=== PATIENT | female | born 1995 | race Caucasian/White ===

== ENCOUNTER 2016-04-13 18:18 | Inpatient (IN) | payer OTHER ==
[~2016-04-13] VITALS: Ht 177.8 cm; Wt 70.3 kg
[~2016-04-13 18:18] MED LIST: QUETIAPINE FUM200 M1 PO; TRAZODONE HCL50 M1 PO
--- NOTE | 2016-04-13 18:26 | NUR ---
PT STATES THAT SHE HAS HISTORY OF BIPOLAR , ANXIETY/DEPRESSION , STATES THAT SHE HAS NOT HAD HER MEDS IN 2 WEEKS, LITHIUM/RIPERDONE/COGENTIN, COMPLAINS OF HEARING VOICES THAT ARE TELLING HER SHE IS A LOSER AND THAT SHE SHOULD KILL HERSELF, NO SPECIFIC PLAN, PT CALM COPERATIVE, MOTHER WITH HER, DENIES DRUGS/ETOH
[2016-04-13] MEDS ORDERED: LITHIUM CARBON300 M4 PO (18:38)
[2016-04-13] MEDS ORDERED: LITHIUM CARBON150 M1 PO (18:38)
[2016-04-13] MEDS ORDERED: RISPERIDONE2 M1 PO (18:39)
[2016-04-13] MEDS ORDERED: BENZTROPINE MESY1 M1 PO (18:39)
--- NOTE | 2016-04-13 18:40 | NUR ---
SECURITY AT BEDSIDE FOR WANDING. PT CHANGED INTO BLUE SCRUBS
--- NOTE | 2016-04-13 18:44 | ED PSYCHIATRIC COMPLAINT ---
History of Present Illness General Chief Complaint: Psychiatric Related Complaint Stated Complaint: MOM STATES "SHE NEED PSY EVAL AND IS OFF HER MEDS" Source: patient, family Exam Limitations: clinical condition, physical impairment Vital Signs & Intake/Output Vital Signs & Intake/Output Vital Signs Date Time Temp Pulse Resp B/P Pulse O2 O2 Flow FiO2 Ox Delivery Rate 04/14 1403 98.2 86 18 102/52 98 Room Air 04/14 1051 98.4 82 18 135/56 98 Room Air 04/14 0748 98.2 72 18 107/51 96 Room Air 04/13 2226 98.2 78 16 116/74 98 Room Air 04/13 1823 97.6 100 16 128/90 98 Room Air ED Intake and Output 04/14 0000 04/13 1200 Intake Total 250 Output Total Balance 250 Intake, Oral 250 Patient 155 lb Weight Allergies Coded Allergies: No Known Allergies (11/22/15) Reconcile Medications Benztropine Mesylate 1 MG TABLET 1 TAB PO BID MENTAL HEALTH (Reported) Raywick Carbonate 150 MG CAPSULE 1 CAP PO QPM MENTAL HEALTH (Reported) Raywick Carbonate 300 MG CAPSULE 600 MG PO QAM MENTAL HEALTH (Reported) Risperidone 2 MG TABLET 1 TAB PO BID MENTAL HEALTH (Reported) Triage Note: PT STATES THAT SHE HAS HISTORY OF BIPOLAR , ANXIETY/DEPRESSION , STATES THAT SHE HAS NOT HAD HER MEDS IN 2 WEEKS, LITHIUM/RIPERDONE/COGENTIN, COMPLAINS OF HEARING VOICES THAT ARE TELLING HER SHE IS A LOSER AND THAT SHE SHOULD KILL HERSELF, NO SPECIFIC PLAN, PT CALM COPERATIVE, MOTHER WITH HER, DENIES DRUGS/ETOH Triage Nurses Notes Reviewed? yes : No Patient currently breastfeeds: No HPI: 04/13/16 7 PM 21-year-old female presents to the emergency department for depression and episodes of agitation. According to the mother the child had stopped taking her medications and she's been using drugs and acting appropriately. Today in the shower she was talking to herself the mother actually taped her and she seems to be having multiple personalities. The onset of the symptoms were abrupt, the duration is really unknown, the severity significant as her symptoms required her to come to the emergency department for care (MEI MARCELINO DO) Past History Travel History Traveled to [place] past 21 day No Medical History Any Pertinent Medical History? see below for history Neurological: NONE EENT: NONE Cardiovascular: NONE Respiratory: NONE Gastrointestinal: NONE Hepatic: NONE Renal: NONE Musculoskeletal: NONE Psychiatric: anxiety, bipolar disease, depression, schizophrenia Endocrine: NONE Blood Disorders: NONE Cancer(s): NONE HYDRATE CONTROL TENDER/Reproductive: NONE Surgical History Surgical History: non-contributory Psychosocial History Who do you live with Mother What is your primary language [place] Tobacco Use: Current Daily Use Daily Tobacco Use Amount/Type: => 5 Cigarettes daily ETOH Use: denies use Illicit Drug Use: denies illicit drug use Family History Hx Contributory? No (MEI MARCELINO DO) Review of Systems Review of Systems Constitutional: Denies: fever. Respiratory: Denies: short of breath. Cardiovascular: Denies: chest pain. GI: Reports: no symptoms. Genitourinary: Reports: no symptoms. Musculoskeletal: Reports: no symptoms. Skin: Reports: no symptoms. Neurological/Psychological: Reports: depressed. Hematologic/Endocrine: Reports: no symptoms. (MEI MARCELINO DO) Physical Exam Physical Exam General Appearance: well developed/nourished, awake, anxious, moderate distress Head: atraumatic, normal appearance Eyes: Bilateral: normal appearance, PERRL, EOMI. Ears, Nose, Throat: normal pharynx, normal ENT inspection, hearing grossly normal Neck: normal inspection, supple, full range of motion Respiratory: normal breath sounds, chest non-tender, no respiratory distress Cardiovascular: regular rate/rhythm Gastrointestinal: soft, non-tender Extremities: normal range of motion Neurological/Psychiatric: no motor/sensory deficits, awake, agitated, alert, normal mood/affect, anxious Appearance/Memory/Insight: disheveled Behavoir/Eye Contact/Speech: cooperative Thoughts/Hallucinations: normal thought pattern, delusions Skin: intact, normal color, warm/dry SAD PERSONS SAD PERSONS Response Value Depression/Hopelessness? yes 2 Previous Attempts/Psych Care yes 1 Excessive Ethanol/Drug Use? yes 1 Total 4 SAD PERSONS Done? yes (MEI MARCELINO DO) Progress Differential Diagnosis: drug intoxication, drug overdose, drug withdrawal Plan of Care: Orders Procedure Date/time Status Regular Diet 04/14 B Active Patient Safety Monitor 04/14 1500 Complete Continuous Observation Monitor 04/14 1500 Active Patient Safety Monitor 04/14 1100 Complete Continuous Observation Monitor 04/14 1100 Active Patient Safety Monitor 04/14 0700 Complete Continuous Observation Monitor 04/14 0700 Active Continuous Observation Monitor 01/02 1904 Active ED CRISIS PSYCH CONSULT 04/13 1903 Active URINE 04/13 1856 Complete URINE DRUG SCREEN FOR ER ONLY 04/13 1856 Complete LITHIUM 04/13 1856 Complete ETHANOL 04/13 1856 Complete COMPREHENSIVE METABOLIC PANEL 04/13 1856 Complete CBC WITHOUT DIFFERENTIAL 04/13 1856 Complete Laboratory Tests 04/13/161926: Urine Opiates Screen < 100.00, Methadone Screen < 40, Barbiturate Screen < 60, Ur Phencyclidine Scrn < 6.00, Amphetamines Screen < 100, U Benzodiazepines Scrn > 800 H, Urine Cocaine Screen < 50, Urine Cannabis Screen 30.50, Urine Test NEGATIVE 04/13/161924: Anion Gap 11, Estimated GFR > 60, BUN/Creatinine Ratio 11.4, Glucose 106 H, Calcium 10.0, Total Bilirubin 0.8, AST 15, ALT 12, Alkaline Phosphatase 54, Total Protein 7.6, Albumin 4.7, Globulin 2.9, Albumin/Globulin Ratio 1.6, CBC w Diff NO MAN DIFF REQ, RBC 5.05, MCV 88.5, MCH 30.0, RDW 12.8, MPV 9.0, Gran % 71.3, Lymphocytes % 20.0 L, Monocytes % 7.4, Eosinophils % 0.8, Basophils % 0.5 , Absolute Granulocytes 5.7, Absolute Lymphocytes 1.6, Absolute Monocytes 0.6, Absolute Eosinophils 0.1, Absolute Basophils 0, PUBS MCHC 33.9, Raywick < 0.2 L , Serum Alcohol < 10.0 Hand-Off Endorsed To: PEDRO ALICEA MD Endorsed Time: 0700 Pending: consult (MUKESH MITCHELL,CASSIE Salas) Comments: To be admitted to [facility] (PEDRO ALICEA MD) Departure Departure Disposition: STILL A PATIENT Condition: Stable Clinical Impression Primary Impression: Depression Secondary Impressions: Agitation Referrals: PATIENT HAS NO PRIMARY CARE DR (PCP/Family) Referred to [facility] as new patient No Departure Forms: Customer Survey General Discharge Information Comments 04/13/16 7:10 PM Signed out to Dr. Toney at 7 PM (MEI MARCELINO DO) Psych Admission Note Psychiatric Admission: I have seen and evaluated KERWIN GARZA. I have also reviewed all the pertinent lab results and diagnostic results. KERWIN GARZA will be admitted to our inpatient Psychiatric unit for treatment and care. (DEANNE MITCHELL,PEDRO) Critical Care Note Critical Care Note Critical Care Time: 30-74 min (MEI MARCELINO DO)
--- NOTE | 2016-04-13 18:45 | NUR ---
PT ALERT AND ORIENTED UPON INTERVIEW. PT REPORTS SHE "HAD A MENTAL BREAKDOWN IN THE SHOWER". PT'S MOTHER DROVE HER TO HOSPITAL. PT REPORTS STOPPING HER MEDS BECAUSE SHE DIDN'T THINK THAT THEY WERE WORKING. PT REPORTS SHE WAS ON [facility] IN NOVEMBER 2015 AND ONE PRIOR INPATIENT STAY AT [place]. PT DENIES HX OF SUICIDE ATTEMPTS. PT DENIES SELF HARM BEHAVIORS. PT REPORTS SLEEP AND APPETITE HAVE BEEN NORMAL, WITH DIMINISHED CONCENTRATION. PT REPROTS SHE HAS A PSYCHIATRIST (DR Norton) AND THERAPIST (MORELIA) THROUGH [facility]. PT DENIES HI. PT REPORTS COMMAND AH TELLING HER TO KILL HERSELF.
--- NOTE | 2016-04-13 19:25 | ED PSY CRISIS COLLATERAL NOTE ---
Collateral Note Collateral Note Family/Inform/Aidee Contacts: SW spoke with the patients mother, Alma Judge ([phone]), to obtain collateral information. Alma reports, that she believes that patient was discharged too soon from [facility] and that the patient has had trouble with services, since being discharged. Alma notes that the patient was set up with "[facility]," until she was discharged from [facility] to [facility]. She states that there was a lapse in time between the discharge and intake appointments. Alma states that in addition to the patient having difficulty with her treaters, there have been ongoing issues with the visiting RN to give the patient her medications. Per Alma the patient has been off her medications for a couple of weeks and that she has become more paranoid. Alma has a video of the patient reportedly in the dark, in the shower, fighting with someone, noting there was no one there. This job specification writer did observe a black screen and the patient can be heard yelling at someone, of note there were no other voices noted. Per Alma the patient made statements about not wanting to be here anymore and "that life would be better off without her." Alma believes that the patient is in need of another hospitalization at this point.
--- NOTE | 2016-04-13 19:39 | NUR ---
URINE TRIO SENT TO LAB
--- NOTE | 2016-04-13 19:40 | NUR ---
LABS SENT (SST,LAV)
[2016-04-13 19:42] LABS: ABSOLUTE BASOPHIL COUNT 0 /CUMM (0.0-0.2); ABSOLUTE EOSINOPHIL COUNT 0.1 /CUMM (0.0-0.7); ABSOLUTE GRANULOCYTE CT 5.7 /CUMM (1.4-6.5); ABSOLUTE LYMPH COUNT 1.6 /CUMM (1.2-3.4); ABSOLUTE MONOCYTE COUNT 0.6 /CUMM (0.10-0.60); BASOPHIL % 0.5 % (0.0-2.0); EOSINOPHIL % 0.8 % (0-5); GRANULOCYTE % 71.3 % (42.2-75.2); HEMATOCRIT 44.7 % (37-47); MEAN CORPUSCULAR HGB CONC 33.9 G/DL (33.0-37.0); MEAN CORPUSCULAR VOLUME 88.5 FL (81.0-99.0); PLATELET COUNT 222 /CUMM (130-400); RBC DISTRIBUTION WIDTH 12.8 % (11.5-14.5); RED BLOOD CELL CT 5.05 /CUMM (4.20-5.40); WHITE BLOOD CELL COUNT 7.9 /CUMM (4.8-10.8)
[2016-04-13 20:03] LABS: LITHIUM < 0.2 mmol/L (0.6-1.2)
--- NOTE | 2016-04-13 21:01 | ED PSYCH CRISIS CONSULTATION ---
Crisis Consult Basic Assessment Date of Consult: 04/13/16 Responsible Person/Accompanied By: Mother- Alma Judge Insurance Authorization: Insurance #1: Insurance name: SELF-PAY Phone number: Policy number: Group number: Authorization number: ED Provider: Patient's ED Provider: MEI MARCELINO DO Primary Care Physician: Patient's PCP: PATIENT HAS NO PRIMARY CARE DR PCP's Phone Number: Current Psychiatrist: [facility] Chief Complaint: Psychiatric Related Complaint Patient's Quote: " I had a mental breakdown." Present Illness: The patient is a 21 year old, single, , female presenting to the ED with her mother, for + command auditory hallucinations, telling her to kill herself. The patient was admitted to [facility] in November 2015 for a similar presentation. After discharge, the patient has been managed by the [facility] program and [facility], however has been somewhat non-compliant. The patient confirms that she has been off her medications for a little while and of note her Applewood level in not therapeutic at this time. She states she has anywhere from 10 to 20 voices and that they were quieter when she was taking her medications. She does endorse a history of VH and states she saw a "green blob" a couple of weeks ago.The patient is currently unemployed, lives with her mother and is supported by her mother. She reports that "her breakdown was short and she didn't do anything." She denies feeling suicidal or homicidal at this time. She reports that she is paranoid about their home and that is why they are in the process of moving. She states that she has a hard time differentiating between her voices and her cats. She denies any current stressors and notes that "these questions," are what's stressful for her, as they are making her anxious. She states that she is not currently in a relationship and recently had a breakup. In addition to her previous [facility] admission and the above OP treaters, she has also been admitted to [facility]. She denies any current drug or alcohol abuse, however states she used to use Marijuana. Her tox screen was positive for Benzodiazepines and she states it may be something she is prescribed. She does not want to be admitted at this time. Collateral obtained from her mother, Alma Judge, please see seperate collateral note. Patient's Address: [address] [place], [place] [id number] Other Phone Number: Who Do You Live With? Mother Family/Informants Interviewed: Mother- Alma Judge- [phone]- Please see seperate collateral note. Allergies - Coded Allergies: No Known Allergies (11/22/15) Current Medications - Scheduled Medications Benztropine Mesylate 1 MG TABLET 1 TAB PO BID MENTAL HEALTH #60 (Reported) Entered as Reported by MIRANDA ANTOINE on 04/13/161838 Last Taken: At an unknown date and time Applewood Carbonate 150 MG CAPSULE 1 CAP PO QPM MENTAL HEALTH #30 (Reported) Entered as Reported by MIRANDA ANTOINE on 04/13/161837 Applewood Carbonate 300 MG CAPSULE 600 MG PO QAM MENTAL HEALTH #120 (Reported) Entered as Reported by MIRANDA ANTOINE on 04/13/161837 Risperidone 2 MG TABLET 1 TAB PO BID MENTAL HEALTH #60 (Reported) Entered as Reported by MIRANDA ANTOINE on 04/13/161838 Laboratory Results: Laboratory Tests 04/13/161926: Urine Opiates Screen < 100.00, Methadone Screen < 40, Barbiturate Screen < 60, Ur Phencyclidine Scrn < 6.00, Amphetamines Screen < 100, U Benzodiazepines Scrn > 800 H, Urine Cocaine Screen < 50, Urine Cannabis Screen 30.50, Urine Test NEGATIVE 04/13/161924: Anion Gap 11, Estimated GFR > 60, BUN/Creatinine Ratio 11.4, Glucose 106 H, Calcium 10.0, Total Bilirubin 0.8, AST 15, ALT 12, Alkaline Phosphatase 54, Total Protein 7.6, Albumin 4.7, Globulin 2.9, Albumin/Globulin Ratio 1.6, CBC w Diff NO MAN DIFF REQ, RBC 5.05, MCV 88.5, MCH 30.0, RDW 12.8, MPV 9.0, Gran % 71.3, Lymphocytes % 20.0 L, Monocytes % 7.4, Eosinophils % 0.8, Basophils % 0.5 , Absolute Granulocytes 5.7, Absolute Lymphocytes 1.6, Absolute Monocytes 0.6, Absolute Eosinophils 0.1, Absolute Basophils 0, PUBS MCHC 33.9, Applewood < 0.2 L , Serum Alcohol < 10.0 (CARLA SECURITY OFFICER,RAJESH) Past History Past Medical History Neurological: NONE EENT: NONE Cardiovascular: NONE Respiratory: NONE Gastrointestinal: NONE Hepatic: NONE Renal: NONE Musculoskeletal: NONE Psychiatric: anxiety, bipolar disease, depression, schizophrenia Endocrine: NONE Blood Disorders: NONE Cancer(s): NONE INSURANCE RISK ANALYST/Reproductive: NONE Past Surgical History Surgical History: non-contributory Psychosocial History Strengths/Capabilities: The patient appears to have a supportive mother. Physical Limitations (Interventions): None noted Psychiatric Treatment History Psych Treatment Psychiatric Treatment Yes Inpatient Treatment Yes Outpatient Treatment Yes Location of Treatment IP- [facility], [facility] Reason for Treatment symptoms of psychosis Dates of Treatment [facility]- November 2015, [facility]- October 2015, OP current Response to Treatment The patient has missed some appointments and has not been compliant with her medications because of missed appointments. Per her mother she has also had issues with the visiting RN. Diagnosis by History: Unspecified Schizophrenia Spectrum Disorder Substance Use/Abuse History Drug Use/Abuse Substances Used/Abused No First Use N/A Last Used N/A How much used/taken N/A How often N/A For how long N/A Route of use N/A Substance Abuse Treatment Substance Abuse Treatment Past Substance Abuse TX No Inpatient Treatment No Outpatient Treatment No (N/A) Location of Treatment N/A Reason for Treatment N/A Dates of Treatment N/A Response to Treatment N/A Comments: The patient denies any curernt drug or alcohol abuse. She does report a history of trying alcohol in the past and using Marijuana. (RAJESH AGUIRRE LCSW) Current Mental Status Mental Status Orientation: Person, Place, Situation Affect: WNL Speech: WNL Neuro-vegetative: Concentration Poor Appearance Appearance- Dress/Hygiene: The patient was sitting in bed, her hair was disheveled and in a bun on the top of her head. She did have good eye contact and participation in the evaluation. Behaviors Thought Process: WNL Thought Content: Auditory Hallucinations, Visual Hallucinations, The patient reports that she is having auditory hallucinations that are command in nature. She states that they were better when she was on her medications. She states that they began to tell her to kill herself today. Her mother has an auditory video that had her screaming at her voices. Memory: WNL Insight: Fair SI/HI Risk Assessment Past Suicidal Ideation/Attempts No Current Suicidal Ideation/Att No Past Homicidal Ideation/Att: No Current Homicidal Ideation/Attempts No Degree of Intent: The patient denies any current or history of SI / HI. Per her mother she did make a comment about life being better off without her. Danger To: N/A Gravely Disabled: Command Auditory Hallucinations. Risk Factors: age (under 24/over 65), SA/MH hospitalized, isolate/no social support, poor impulse control Lethality Ratin PTSD Checklist PTSD Done? patient declined (Pt. denies trauma or abuse hx.) ED Management Sitter: Yes Restraints: No (RAJESH AGUIRRE LCSW) DSM5/PS Stressors/Medical Prob Diagnosis' (DSM 5, Stressors, Medical): F29 Unspecified Schizophrenia Spectrum and other Psychotic Disorder. Current GAF: 28 Comments: N/A (RAJESH AGUIRRE LCSW) Departure Disposition Psych Medical Clearance Date: 04/13/16 Medically Cleared at: 2009 Time Started: 2009 Time Ended: 2049 Psychiatrist Consulted: Ryan Womack MD Date Disposition Established: 04/13/16 Time Disposition Established: 2049 Plan for Disposition - Modality: Inpatient Psychiatry Facility: [facility] Contact: N/A Telephone: N/A Rationale for Disposition: The patient is a 21 year old female presenting to the ED with an increase in command auditory hallucinations, telling her to kill herself. The patient has been treatment and medication non-compliant. Case discussed with Dr. Womack and he finds the patient to be in need of an inpatient hospitalization at this time. Per Dr. Womack she should be held over for admission to [facility] tomorrow vs. bed search. Additional Instructions: N/A Referrals PATIENT HAS NO PRIMARY CARE DR (PCP/Family) (RAJESH AGUIRRE LCSW)
--- NOTE | 2016-04-13 21:06 | NUR ---
PT SITTING ON BED, ALERT AND ORIENTED. PT WATCHING TV. SITTER AT DOOR FOR SAFETY. PT CALM AND COOPERATIVE
--- NOTE | 2016-04-13 22:09 | NUR ---
PT MEDICATED WITH ATIVAN 2MG PO PT CALM AND COOPERATIVE, WATCHING TV, LYING IN BED.
--- NOTE | 2016-04-13 22:26 | NUR ---
PT SITTING ON BED WATCHING TV. PT PLEASANT, CALM AND COOPERATIVE. SITTER AT DOOR FOR SAFETY.
--- NOTE | 2016-04-14 00:46 | NUR ---
PT SLEEPING WITH RR, CHEST AND RISE FALL NOTED, PT SLEEPING WITH BLANKET ON HEAD TO BLOCK LIGHT. SITTER IN PLACE AT DOOR, WILL CONTINUE TO MONITOR.
--- NOTE | 2016-04-14 02:11 | NUR ---
PT SLEEPING WITH RR, CHEST RISE AND FALL NOTED, SLEEPING ON SIDE. SITTER IN PLACE AT DOOR, WILL CONTINUE TO MONITOR.
--- NOTE | 2016-04-14 03:57 | NUR ---
PT SLEEPING WITH RR, CHEST RISE AND FALL NOTED. SITTER IN PLACE AT DOOR, WILL CONTINUE TO MONITOR
--- NOTE | 2016-04-14 06:37 | NUR ---
assumed care at this time, pt wakes to verbal stimuli and offers no complaints at this time. will continue to monitor
--- NOTE | 2016-04-14 09:08 | NUR ---
PT REMAINS CALM AND COPERATIVE, SLEEPING WITH REGULAR RESP RATE NOTED, SITTERS REMAIN
--- NOTE | 2016-04-14 10:31 | NUR ---
PT NOTED TO BE SLEEPING AT THIS TIME, REGULAR RESP RATE NOTED . SITTERS REMAINS
--- NOTE | 2016-04-14 12:01 | NUR ---
PT ASLEEP WHEN THIS NURSE ENTERED ROOM, AWAKES TO VERBAL STIMULI, CALM AND COPERATIVE, PROVIDED WITH FOOD TRAY
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
--- NOTE | 2016-04-14 15:18 | NUR ---
ASSUMING CARE OF PT
--- NOTE | 2016-04-14 16:02 | NUR ---
[facility] CALLED FOR MEDS
--- NOTE | 2016-04-14 17:14 | NUR ---
REPORT GIVEN TO PAINTING MANAGER, OK TO SEND PT DOWN
--- NOTE | 2016-04-14 18:36 | NUR ---
ADMITTED FROM ED ON VOLUNTARY FOR USPECIFIED SCHIZOPHRENIA S/P REPORTED BREAKDOWN AT HOME. DISCHARGED FROM [facility] IN NOVEMBER AND STOPPED TAKING MEDS ABOUT TWO WEEKS AGO. rEPORTS DIESEL MECH[employer]IC [employer] [facility] TELLING HER TO HKILL HERSELF. DENIES CURRENT THOUGHTS OF SELF HARM. MOOD IS ELEVATED WITH GIDDY AFFECT. NO MEDICAL ISSUES REPORTED.
[2016-04-14 20:01] VITALS: BP 106/60
[2016-04-15 08:08] VITALS: BP 84/52
[2016-04-15 11:06] VITALS: BP 84/52
[2016-04-15 11:24] VITALS: BP 112/72
--- NOTE | 2016-04-15 11:57 | NUR ---
ABNORMAL EKG SEEN BY . NO NEW ORDERS AT THIS TIME
--- NOTE | 2016-04-15 12:09 | CPS MD/APRN INITIAL ASSE PSYCH ---
See Addendum Psychiatric Admission User Support Specialist's Note Reviewed: Yes Patient Seen and Examined: Yes Identifying Information: Patient is a 21-year old single female. Chief Complaint: "I had a nervous breakdown in my shower and screamed that I was an asshole." Reaction to Hospitalization: "When will I go home?" History of Present Illness Onset of Illness: Patient is a 21-year old, single, female with a history of psychosis, who was brought to ED by her mother for command auditory hallucinations telling her to kill herself. Patient was previously hospitalized on [facility] in November of 2015, for a similar presentation. Patient had been dioscharged from [facility] with follow-up to [facility] and [facility]. Patient reported non-adherence to prescribed medications during treatment there, and reported being off prescribed medications over the last "few weeks." She presently denies SI, HI, VH, CAH. She reported +AH asking why this card writer hand is asking her questions. She denied that AH were ever command in nature prior to this current [facility] hospitalization. Patient presents tired, and internally distracted, ? thought blocking, and responding to internal stimuli. Reported feeling very tired this morning after receiving last night's scheduled doses of Glen 600mg and Risperdal 2mg. Was noted this morning with hypotension, ? related to restarted home meds which she was previously nonadherent to. Denied N/V/dizziness. Will re-evaluate medication regimen and encouraged patient to increase po fluids. Circumstances Leading to Admission: medication non-adherence, treatment non-adherence, "my mental breakdown." Problem(s) Justifying Need for Admission: Pt reported command auditory hallucinations to kill herself in ED. Psychosis. Past Psychiatric History Past Diagnosis(es)- if any: F29 Unspecified Schizophrenia Spectrum and other Psychotic Disorder. Past Precipitating Factors- if any: Medication non-adherence, treatment non-adherence, legal issues, substance abuse. - Include inpatient and outpatient treatment Treatment History: Inpatient PsychiatricTreatment: [facility] (November 2015), [facility] (October 2015) Outpatient Psychiatric Treatment: [facility] History of Suicide Attempts or Gestures Patient denied a history of suicide attempts. Substance Abuse History: Patient reported a history of Cannabis and Alcohol use. Reported last use of cannabis was "last year," and reported last use of alcohol was January 2016. Utox (+) for benzodiazepines in ED. Patient reported she had been prescribed a benzodiazepine by a former psychiatrist which she was taking for anxiety. *CT MATERIAL COMBINER reviewed, and there were no prescriptions filed under her listed name over the last 3 years. Patient did not know the name of the prescription benzodiazepine she had been prescribed. Allergies: Coded Allergies: No Known Allergies (11/22/15) Home Med List: Glen Risperdal Cogentin Patient did not know the doses of prescribed medications, or know which pharmacy she last filled them at. - Include any medical condition(s) that may - impact the patient's recovery/remission Past Medical History: Patient denied a significant medical history. 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 Substance Use: Patient denied a known family history of substance abuse. Suicides: Patient denied a known family history of suicide attempts. Social History Living Situation: Patient reported living currently with her mother and step-dad in [place], [place]. Significant Relationships (family/friends): Patient reported her mother and step-dad are her primary supports. She reported having no contact with her biological father and her 2 step-siblings. Education: H.S. Diploma Vocation/Occupation: Unemployed Legal: Reported prior arrest for disorderly conduct while intoxicated this year. Per [place] judicial site, there were no charges filed under patient's name. Healthly Behaviors Screening Tobacco Screening Tobacco Use from ED Docu: Current Daily Use Daily Tobacco Use Amount/Type: => 5 Cigarettes daily - If tobacco counseling indicated - the following topics are required. - #1 Recognizing dangerous situations. - #2 Coping Skills. - #3 Basic information about quitting. Status of Tobacco Cessation Counseling: #1, #2 AND #3 Completed Cessation Med Status: Nicotine Patch Ordered Alcohol Screening - ETOH screen POS if BAL >=80 or Audit-C>= M4/F3 Audit-C Score from Diag Assess: 0 Blood Alcohol Level: Laboratory Tests 04/13 1924 Toxicology Serum Alcohol (<10 MG/DL) < 10.0 Alcohol Use Screening Results: Neg per Audit C &/or BAL - If ETOH counseling indicated - the following topics are required. - #1 Express concern about the patient's - drinking at unhealthy levels, include informing - of national norms for moderate drinking: - men <= 14 drinks/week, max 4 drinks/occasion - women <= 7 drinks/week, max 3 drinks/occasion - #2 Providing feedback, including linking alcohol to - negative physical effects (liver injury, hypertension) - negative emotional effects (relationship problems and - depression) - negative occupational consequences (reduced work - performance) - #3 Advising the patient to abstain from alcohol or - to drink below national norms for moderate drinking - (as listed above). Status of ETOH Use Counseling: N/A B/C NO ETOH Use Metabolic Screening - Screen if on a Neuroleptic Medication - Metabolic screening should include: - Blood Pressure, BMI, Glucose or Hgb A1c, & a - Lipid profile from within the past 365 days. Metabolic Screening () Not Applicable, patient not on a neuroleptic. OR ([X]) Patient on a neuroleptic(s) . Enter below results for Glucose or Hemoglobin A1C, and lipid panel if obtained during the last 365 days. BMI: 22.200 Blood Pressure: 112/72 Laboratory Results (If applicable): Exam and Plan Mental Status Examination Ambulation Status: Steady and independent. Appearance: Tall, thin, hair pulled back in messy bun, wearing sweatshirt and paper scrub pants. Attitude towards examiner: Cooperative, soft-spoken, calm. Psychomotor activity: WNL Behavior: Somewhat guarded Quality of speech: Soft spoken, normal in rate and tone. Affect: Blunted Mood: Calm Suicidal Ideation: Pt denies. Homicidal Ideation: Pt denies. Hallucinations: +AH of voice asking her who this card writer hand is and why this card writer hand is asking her questions. Denied CAH to harm herself or others. Patient presently identified hearing only one voice at present. Paranoid/Delusional Material: None evident at present. Difficulties with thought organization: Probable. Patient appeared somewhat distracted. Spoke minimally, only answered direct questions shortly. ? thought blocking or impaired though organization secondary to AH. Insight: Limited Judgment: Limited Orientation: A&Ox3. Cognition: Appeared somewhat blocked. Memory Function: Grossly intact. Will require continued monitored as psychosis clears for more accurate assessment. Estimate of intellectual functioning: Average Assets/Strengths Patient Identified Assets/Strengths: Supportive family Impression/Plan Impression and Plan: Patient is a 21-year old female with a history of psychosis and impulsive/risky behaviors which have been influenced by substance use and resulted in prior legal charge for disorderly conduct per pt report. Patient with history of 2 prior inpatient psychiatric hospitalizations on 2016, nonadherence to psychotropic medications and outpatient treatment. Patient symptoms are likely largely influenced by poor treatment adherence, and psychosocial stressors which the patient could not clearly identify on encounter. Presented tired on encounter, previously hypotensive this morning ? related to restarted psychotropic medications and prior med nonadherence. She denied nausea/vomiting, dizziness. A&Ox3. Patient with limited insight/judgement into circumstances leading to this hospitalization. Presents today with AH of 1 voice, not command in nature. Denied VH, HI, SI. Will require continued monitoring of psychiatric symptoms, medication monitoring, and collateral from previous psychiatric providers and family. - Include all active medical diagnosis that require tx DSM 5 Diagnosis(es): F29 Unspecified Schizophrenia Spectrum and other Psychotic Disorder. R/o Unspecified Bipolar disorder - Initial Tx Plan for Active Psych & Medical Conditions Treatment Plan: 1. Monitor the patient on unit for safety, psychosis and mood. 2. Decrease home medication to Glen 300mg BID, Risperdal 1mg BID, and continue Cogentin 1mg BID due to fatigue and prior hypotensive episode. Will monitor patient's response to medications at these doses, as she was previously non-adherent over last few weeks. Will monitor patient response to medications, and increase as needed to stabilize psychosis. 3. Push po fluids. 4. Glen level scheduled on 04/18/15 at 0600. 5. Will obtain collateral from family and outpatient psych providers once patient is agreeable to signing ROIs. 6. Once psychiatric symptoms are stabilize will refer patient likely to [facility] level of care. - Factors that would help patient function - in a less restrictive setting. Factors: Stabilization of psychosis. Medication adherence.
--- NOTE | 2016-04-15 12:17 | History & Physical ---
General Information and HPI MD Statement: I have seen and personally examined KERWIN GARZA and documented this H&P. The patient is a 21 year old F who presented with a patient stated chief complaint of hearing voices. Source of Information: patient Exam Limitations: no limitations History of Present Illness: 21-year-old female with history significant for anxiety, depression, schizophrenia who was admitted with a chief complaint of hearing voices. She has been followed by an outpatient psychiatrist but has not been taking her medications due to running out of meds and secondly she didn't want to take them anymore. She has been hearing voices to kill herself. As noted in the collateral information from her mother, patient has been hearing voices and actually they were not there. Also she had made statements about hurting herself as world will be better without her. Patient claims that she smokes a pack of cigarettes a day. She currently denies any chest pain, abdominal pain, headache, fevers or chills. She denies any use of drugs. Allergies/Medications Allergies: Coded Allergies: No Known Allergies (11/22/15) Home Med list Benztropine Mesylate 1 MG TABLET 1 TAB PO BID MENTAL HEALTH (Reported) [place] Carbonate 150 MG CAPSULE 1 CAP PO QPM MENTAL HEALTH (Reported) [place] Carbonate 300 MG CAPSULE 600 MG PO QAM MENTAL HEALTH (Reported) Risperidone 2 MG TABLET 1 TAB PO BID MENTAL HEALTH (Reported) Past History Travel History Traveled to [place] past 21 day No Medical History Neurological: NONE EENT: NONE Cardiovascular: NONE Respiratory: NONE Gastrointestinal: NONE Hepatic: NONE Renal: NONE Musculoskeletal: NONE Psychiatric: anxiety, bipolar disease, depression, schizophrenia Endocrine: NONE Blood Disorders: NONE Cancer(s): NONE DIRECTOR OPERATIONS BROADCAST/Reproductive: NONE History of MRSA: No History of VRE: No History of CDIFF: No Isolation History: Standard Surgical History Surgical History: non-contributory Past Family/Social History Psychosocial History Where do you live? Home Smoking Status: Current Everyday Smoker ETOH Use: denies use Illicit Drug Use: denies illicit drug use Employment History Employment Unemployed Profession/Employer N/A Review of Systems Review of Systems Constitutional: Reports: see HPI. EENTM: Reports: see HPI. Cardiovascular: Reports: see HPI. Respiratory: Reports: see HPI. GI: Reports: see HPI. Genitourinary: Reports: see HPI. Musculoskeletal: Reports: see HPI. Skin: Reports: see HPI. Neurological/Psychological: Reports: see HPI. Exam & Diagnostic Data Last 24 Hrs of Vital Signs/I&O Vital Signs Date Time Temp Pulse Resp B/P Pulse O2 O2 Flow FiO2 Ox Delivery Rate 04/15 1124 83 112/72 04/15 1106 97.5 112 84/52 04/15 0808 97.5 112 84/52 04/14 2001 96.8 96 106/60 04/14 1611 98.2 73 12 112/58 97 Room Air 04/14 1403 98.2 86 18 102/52 98 Room Air Intake & Output 04/15 1600 04/15 0800 04/15 0000 Intake Total Output Total Balance Patient 155 lb Weight Physical Exam General Appearance Alert, Oriented X3, Cooperative, No Acute Distress Skin No Rashes, No Breakdown HEENT Atraumatic, PERRLA Neck Supple Cardiovascular Regular Rate, Normal S1, Normal S2 Lungs Clear to Auscultation Abdomen Normal Bowel Sounds, Soft, No Tenderness Neurological Cranial Nerves II through XII: Intact Extremities No Clubbing, No Cyanosis Last 24 Hrs of Labs/Ted: Laboratory Tests 04/13/161926: Urine Opiates Screen < 100.00, Methadone Screen < 40, Barbiturate Screen < 60, Ur Phencyclidine Scrn < 6.00, Amphetamines Screen < 100, U Benzodiazepines Scrn > 800 H, Urine Cocaine Screen < 50, Urine Cannabis Screen 30.50, Urine Test NEGATIVE 04/13/161924: Anion Gap 11, Estimated GFR > 60, BUN/Creatinine Ratio 11.4, Glucose 106 H, Calcium 10.0, Total Bilirubin 0.8, AST 15, ALT 12, Alkaline Phosphatase 54, Total Protein 7.6, Albumin 4.7, Globulin 2.9, Albumin/Globulin Ratio 1.6, TSH 0.654, CBC w Diff NO MAN DIFF REQ, RBC 5.05, MCV 88.5, MCH 30.0, RDW 12.8, MPV 9.0, Gran % 71.3, Lymphocytes % 20.0 L, Monocytes % 7.4, Eosinophils % 0.8, Basophils % 0.5, Absolute Granulocytes 5.7, Absolute Lymphocytes 1.6, Absolute Monocytes 0.6, Absolute Eosinophils 0.1, Absolute Basophils 0, PUBS MCHC 33.9, [place] < 0.2 L, Serum Alcohol < 10.0 Diagnostic Data EKG Results NSR. Assessment/Plan Assessment: 21-year-old female with history significant for anxiety, depression, schizophrenia who is admitted with acute psychosis. I will leave the psych management up to psych. Patient was given smoking cessation counseling. She is ordered nicotine gum. If needed nicotine patch can also be ordered. Her labs look okay. As Ranked By This Provider Problem List: 1. Psychosis 2. Depression 3. Anxiety Miscellaneous Miscellaneous Documentation Attending Case Discussed With: SMITA CHAUDHRY MD Primary Care Physician: PATIENT HAS NO PRIMARY CARE DR Patient sees these Specialists PSYCHIATRIST Level of Patient Care: ELYSIA Valencia
--- NOTE | 2016-04-15 12:28 | NUR ---
PTS PLAN WAS TO ATTEND GROUPS AND GET TO KNOW THE ROUTINE AND HER PEERS. SHE IS CALM AND COMPLIANT WITH HER MED REGIME. PT DENIES ANY SUICIDAL THOUGHTS AT THIS TIME
--- NOTE | 2016-04-15 15:17 | SOCIAL WORKER PROG NOTE PSYCH ---
Social Work Progress Note Progress Note SW met with patient for the first time today. Patient presented with flat affect and depressed mood. She made little eye contact during our meeting and did appear to be responding to internal stimuli at times. Patient reported that she had a "mental breakdown in the shower" prior to coming to the hospital and her parents heard her and wanted her to get help. Patient reported that she stopped taking her medications a few weeks ago because she thought she could manage the auditory hallucinations on her own. Patient reported that since she stopped taking the medication, the voices have increased and are unmanageable. Patient reports an understanding for the need for medication management at this time and is open to it. I spoke with patients mother ([place] [phone]) and scheduled a family meeting for tomorrow @2pm. Patients mother appears to be a positive support in her life and is familiar with patients mental health hx.
--- NOTE | 2016-04-15 15:22 | SOCIAL WORKER TX PLAN PSYCH ---
Treatment Plan - Please Document: - Evidence that there is ongoing collaboration between - the patient and the interdisciplinary team, - including the patient's active participation and - responsibility for engaging in the treatment regimen, - and that the treatment plan is individualized and - relevant to the patient's conditions. - Treatment plan should reflect documentation indicating - that all active therapeutic efforts are included. Strengths/Capabilities: The patient appears to have a supportive mother. Physical Limitations (Interventions): None noted Patient Identified Trmt Goals: "I just want to get better and go home." Discharge Plan: IOP Problem/Goals #1 Problem #1: psychosis Goal (Short Term): Improve ability to see world as others do Be free of false perceptions and [see/hear/smell/feel] things as others do Be free of false beliefs Be free of thoughts that others are out to get you Spend 2-3 hours each week visiting with others Report feeling comfortable spending time with others Be free of negative thoughts to hurt self Goal (Transplanter): Identify 2 positive traits per week about myself Identify 2 things I have to look forward to Identify 2 positive people in my life and 1 thing I appreciate about them Interventions: Learn ways to manage medications accordingly and identify positive supports to manage unusual symptoms that may occur. Modalities: Encourage groups, education on depression, provide CBT treatment, family meeting. DSM5/PS Stressors/Medical Prob Diagnosis' (DSM 5, Stressors, Medical): F29 Unspecified Schizophrenia Spectrum and other Psychotic Disorder. Current GAF: 28 Treatment Team - Responsibilities of members of the treatment team include: - Medication Management- MD or CONSULTING INTERN - Medication Administration and Monitoring- Nurse - Group Therapy- Occupational Therapist - 1:1 Therapy,Disch Planning,family involvement-Logging Crew Foreman
[2016-04-15 19:52] VITALS: BP 137/68
--- NOTE | 2016-04-15 22:46 | NUR ---
PT IS VISIBLE ON UNIT, VERY SOCIAL WITH PEERS. HAD VISIT FROM MOTHER THROUGHOUT THE EVENING. VERY PLEASANT AND COOPERATIVE. ATTENDED WRAP UP MEETING. NO COMPLAINTS OR SI REPORTED TO THIS MHW. PT HAS A STABLE MOOD AND FULL RANGE AFFECT.
--- NOTE | 2016-04-16 05:26 | NUR ---
PATIENT WAS BRIEFLY OUT OF BED AT 0345, OTHERWISE APPEARED TO SLEEP MOST OF THE NIGHT.
[2016-04-16 12:04] VITALS: BP 118/67
--- NOTE | 2016-04-16 13:20 | NUR ---
PT IS COMPLIANT AND COOPERATIVE. MOOD IS STABLE WITH A FULL RANGE OF AFFECT. PT DENIES SI AT THIS TIME, NO COMPLAINTS OFFERED. NO SIGNS OF ACTIVE PSYCHOSIS NOTED. PT WAS ISOLATIVE IN BED THIS MORNING. PT PRESENT ON UNIT AROUND NOON; INTERACTS WITH PEERS AND STAFF. PT HAS NOT ATTENDED GROUPS. VITALS ARE STABLE, APPETITE IS GOOD.
--- NOTE | 2016-04-16 14:04 | CP SOUTH PROGRESS NOTE PSYCH ---
Psych (Inpt) Progress Note Progress Note Include the following elements, when applicable: Involvement in the active treatment of the patient with behavioral observations of the patient and the patient's response to the treatment. Review of the ongoing treatment process in the context of the treatment plan. Indication of how multi-disciplinary staff members are carrying out the treatment plan. Plans for future interventions and recommendations for revision of the treatment plan. Liaison with other physicians/providers. Progress Note: [I discussed this patient's progress to date, current mental status, treatment process in the context of the treatment plan, and discharge planning with staff/ team in the daily morning inpatient team meeting. I also met with the patient myself in individual session.] SUBJECTIVE: "When can I go home?" OBJECTIVE: Current Medications Sig/Roseline Start time Last Medication Dose Route Stop Time Status Admin Acetaminophen 650 MG Q6P PRN 04/14 1515 AC 04/16 PO 1123 Al Hydroxide/Mg 30 ML Q4-6 PRN PRN 04/14 1515 AC Hydroxide PO Benztropine Mesylate 1 MG BID 04/14 1513 AC 04/16 PO 1122 Gabapentin 300 MG Q6P PRN 04/14 1530 AC PO [place] Carbonate 300 MG 0800,0 04/15 2200 AC 04/16 PO 1122 Magnesium Hydroxide 30 ML AT BEDTIME PRN 04/14 1515 AC PO Nicotine 14 MG 0800 04/16 0800 AC 04/16 TOP 1122 Nicotine 2 MG Q2P PRN 04/14 1515 AC 04/15 PO 1700 Risperidone 1 MG 0800 / 0800 UNVr PO Risperidone 2 MG 0 04/16 2200 UNVr PO Risperidone 1 MG 0800,0 04/15 2200 DC 04/16 PO 1122 Trazodone HCl 50 MG AT BEDTIME NEED.. 04/14 1530 AC 04/16 PO 0002 Vital Signs Date Time Temp Pulse Resp B/P Pulse O2 O2 Flow FiO2 Ox Delivery Rate 04/16 1204 97.7 92 118/67 04/15 1952 96.6 84 137/68 ASSESSMENT: Met with the patient today together with Nayana Garcia LCSW, the patient's mother and stepfather for a family meeting. During family meeting, the patient's treatment progress, level of safety, psychiatric symptoms, and discharge planning were reviewed and discussed. The patient's mother and step-father expressed concerns over the patient's impulsive and unpredictable behaviors, and nonadherence to 4 prior psychiatric programs and medications. It was clear during meeting, that the patient minimized her psychiatric symptoms, and showed limited insight into her psychiatric symptoms or behaviors resulting in inpatient hospitalization. The patient struggled to identify triggers which resulted in her relapse of symptoms. On individual encounter with the patient, patient made poor eye contact. Speech was soft and mumbled. She reported her impression of the family meeting as "everyone is over-reacting." Patient reported "I'm fine, I don't need to be here." The patient continued to show limited insight and judgment into her psychiatric symptoms, and ways to prevent relapse. This global technical writer reviewed with the patient that one recurring theme to her relapses are related to medication nonadherence. This global technical writer educated the patient on switching from Risperdal tablet formulation to Risperdal DUEÑAS to assist in medication adherence. The patient refused recommendation, and reported "I hate needles...no,no,no." The patient reported continued auditory hallucinations. She reported hearing voices telling her "Where are you going?," and during the family meeting heard a voice saying "why is your mom crying?." When asked how many voices she hears, she would not elaborate. She reported that her voices don't scare her, and reported "they're my best friends." The patient would not elaborate further on that statement and appeared internally preoccupied. She denied that auditory hallucinations were command in nature. She denied visual hallucinations. She rated her anxiety a 6/10 (10 being the worst) and depression a 5/10 (10 being the worst). She was unable to identify triggers to her anxiety and depression. She remained guarded and distracted throughout interview, appeared responding to internal stimuli. She denied suicidal ideation, plans and intent. She denied homicidal ideation, plans and intent. Reported appetite and sleep as "fine." She appeared unmotivated to consider after care treatment recommendations such as IOP level of care, and reported "just give me my meds and let me leave." This global technical writer reviewed with the patient that given current symptoms she would not be discharged today, and that her primary team will continue to monitor her symptoms, response to medications, and put into place a discharge plan. The patient reported tolerating all medications well and denied untoward medication effects. AIMS=0. Patient was agreeable to increase Risperdal to 2mg at HS, and to continue Risperdal 1mg daily for auditory hallucinations. Will continue monitoring patient's response to increase in Risperdal. PLAN: 1. Continue monitoring the patient on unit for safety, mood and psychosis. 2. Increase HS Risperdal to 2mg tonight, and continue Risperdal 1mg every morning to target auditory hallucinations. Will continue to encourage switch to Risperdal DUEÑAS. 3. Continue current medications. 4. Li level scheduled on 04/18/16 at 0600. 5. Dispo planning per primary team.
[2016-04-16 15:46] VITALS: BP 105/59
--- NOTE | 2016-04-16 16:19 | SOCIAL WORKER PROG NOTE PSYCH ---
Social Work Progress Note Progress Note Patient had family meeting today with this machine sign writer, Daksha Agudelo APRN, and patients mother and step father. Patient made poor eye contact throughout entire meeting and showed poor insight into the severity of her mental illness. Patient primarily stressed her desire to discharge the hospital and was unable to see a need for continued hospitalization. Patient was defensive at times after her parents expressed their concern for her recent behaviors and symptoms. Patients parents appear very supportive of patient and also very concerned. They report that patient has failed 4 programs since August 2015 mainly due to non compliance with programs. Patient continues to report AH, denies SI/HI/VH. Patients mom did express her concern for safety if patient were to return home, especially in this condition. Family is aware that patient will not be discharging hospital this week and we can plan to meet again next week prior to discharge.
[2016-04-16 19:39] VITALS: BP 121/59
--- NOTE | 2016-04-16 21:52 | NUR ---
PT IS VISIBLE ON UNIT INTERACTING WITH PEERS AND STAFF. PT IS COMPLIANT AND COOPERATIVE. PT ENJOYED A VISIT FROM HER MOTHER AND GRANDMOTHER PLAYING CARD GAMES AND INCLUDING OTHER PEERS. PT MOOD IS STABLE WITH A FULL RANGE AFFECT. PT ATTENDED WRAP UP. NO COMPLAINTS OFFERED AT THIS TIME.
--- NOTE | 2016-04-17 10:22 | SOCIAL WORKER PROG NOTE PSYCH ---
Social Work Progress Note Progress Note Phoned [employer] with Candi this morning, they stated she has to have her Mother cancel the redetermination that is pending in order to Pt. to initiate her own application for Mynor Farmer with Pt's Mother, and she stated the redetermination was denied or pending because of tax issues she has to address. Her Mother called [employer] and cancelled the pending insurance under her name for Pt. Pt. is calling [employer] again this morning to apply for her own Mynor Garcia LCSW on the above.
--- NOTE | 2016-04-17 13:20 | CP SOUTH PROGRESS NOTE PSYCH ---
Psych (Inpt) Progress Note Progress Note Include the following elements, when applicable: Involvement in the active treatment of the patient with behavioral observations of the patient and the patient's response to the treatment. Review of the ongoing treatment process in the context of the treatment plan. Indication of how multi-disciplinary staff members are carrying out the treatment plan. Plans for future interventions and recommendations for revision of the treatment plan. Liaison with other physicians/providers. Progress Note: [I discussed this patient's progress to date, current mental status, treatment process in the context of the treatment plan, and discharge planning with staff/ team in the daily morning inpatient team meeting. I also met with the patient myself in individual session.] SUBJECTIVE: "What?" OBJECTIVE: Current Medications Sig/Roseline Start time Last Medication Dose Route Stop Time Status Admin Acetaminophen 650 MG Q6P PRN 04/14 1515 AC 04/16 PO 1123 Al Hydroxide/Mg 30 ML Q4-6 PRN PRN 04/14 1515 AC Hydroxide PO Benztropine Mesylate 1 MG BID 04/14 1513 AC 04/17 PO 1001 Gabapentin 300 MG Q6P PRN 04/14 1530 AC PO [place] Carbonate 300 MG 0800,0 04/15 2200 AC 04/17 PO 1003 Magnesium Hydroxide 30 ML AT BEDTIME PRN 04/14 1515 AC PO Nicotine 14 MG 04/16 0800 AC 04/17 TOP 1001 Nicotine 2 MG Q2P PRN 04/14 1515 AC 04/15 PO 1700 Risperidone 1 MG 0800 04/17 0800 AC 04/17 PO 1001 Risperidone 2 MG 04/16 2200 AC 04/16 PO 2110 Risperidone 1 MG 0800,04/15 2200 DC 04/16 PO 1122 Trazodone HCl 50 MG .STK-MED ONE 04/16 2245 DC PO 04/16 2246 Trazodone HCl 50 MG AT BEDTIME NEED.. 04/14 1530 AC 04/16 PO 2250 Vital Signs Date Time Temp Pulse Resp B/P Pulse O2 O2 Flow FiO2 Ox Delivery Rate 04/16 1938 97.4 86 121/59 04/16 1546 84 105/59 ASSESSMENT: Met with the patient today, in her room, where she appeared tired, withdrawn and resting in bed. Per nursing report, the patient was out of bed minimally today, for meals and to meet with PROPOSAL LEAD WRITER, and refusing VS. Affect apeared blunted. Mood was "fine." Patient minimally engaged in conversation with this justowriter operator and provided short responses to this justowriter operator's questions. Attention appeared distracted, continues to appear responding internally. She reported hearing +AH of "20 voices" earlier today telling her to "eat." Reported voices are male and female. When asked if she heard them at present, she denied. Reported pattern of voices as less frequent since yesterday. She denied AH to be command in nature. She denied visual hallucinations. There was no evidence of paranoia or delusions on encounter. She reported depression of 4-5/10 (10 being the worst) and anxiety of 5-6/10 (10 being the worst). She reported feeling some hopelessness and helplessness related to still being hospitalized on unit. She denied feeling worthless. She denied suicidal ideation, plans and intent. She denied homicidal ideation, plans and intent. I/J remain limited, as patient remains unable to identify reasons why she is currently hospitalized. Discussed with patient option of switching from Risperdal po formulation to DUEÑAS to increase medication adherence post-discharge from [facility]. Patient continued to refuse recommendation. Patient reported tolerating medications well and denied untoward effects. AIMS= 0. This justowriter operator asked if she felt sedated from increased Risperdal dose. Patient denied feeling sedated and reported that staying in bed is part of her regular routine at home. Patient was strongly encouraged to participate in milieu activites, VS, and milieu routine, and to limit time in room. Will continue current medication regimen. PLAN: 1. Continue current medication regimen for now. 2. Consider increasing Risperdal to 3mg at HS over the weekend, if patient continues to tolerate, to further target auditory hallucinations. 3. Li level scheduled tomorrow, 04/18/16 at 0600. Please check level and increase if subtherapeutic. Target Li level (0.8-1.0). 4. Continue monitoring the patient on unit for safety, mood and psychosis. 5. Strongly encourage participation in milieu activites. 6. Dispo planning per primary team.
[2016-04-17 13:25] VITALS: BP 83/56
--- NOTE | 2016-04-17 14:40 | NUR ---
PT DID NOT ATTEND MORNING GROUPS BUT DID ATTEND AFTERNOON GROUPS. HER AFFECT IS FULL RANGE AND SHE IS CALM AND COOPERATIVE. SHE DENIED ANY SUICIDAL THOUGHTS AND WAS WORKING WITH HER MANAGER INTERNAL TO GET INSURANCE COVERAGE
[2016-04-17 16:13] VITALS: BP 117/71
[2016-04-17 19:44] VITALS: BP 118/62
--- NOTE | 2016-04-17 21:33 | NUR ---
PT HAS BEEN CALM, COOPERATIVE WITH STAFF/PEERS, AND COMPLIANT WITH UNIT RULES DURING SHIFT. PT ENJOYED A VISIT FROM MOTHER DURING THE SHIFT. PT HAS BEEN STAYING IN [place] AND IS INTERACTING WELL WITH PEERS. PT MOOD IS STABLE, AFFECT IS BRIGHT, COMMUNICATION IS NORMAL, APPETITE IS NORMAL. PT DENIES SI AT THIS TIME.
--- NOTE | 2016-04-18 04:50 | NUR ---
DIFFICUTY WITH SLEEP THIS SHIFT 0300 CAME OUT TO GET SOMETHING TO SLEEP TRAZADONE GIVEN.
[2016-04-18 08:01] VITALS: BP 109/69
[2016-04-18 12:19] VITALS: BP 113/67
--- NOTE | 2016-04-18 12:20 | NUR ---
Dr. Varner notified re: lithium level of 0.4 today, no further orders at this time.
--- NOTE | 2016-04-18 13:52 | NUR ---
PT IS COMPLIANT AND COOPERATIVE. PT IS OUT IN COMMUNITY MOST OF SHIFT INTERACTING WELL WITH STAFF AND PEERS. PT HAS BEEN IN KITCHEN SOICALIZING WITH PEERS FOR MOST OF SHIFT. PT MOOD IS STABLE WITH A FULL RANGE AFFECT. PT DENIES SI. NO COMPLIANTS OFFERED
[2016-04-18 15:57] VITALS: BP 103/62
--- NOTE | 2016-04-18 16:47 | CP SOUTH PROGRESS NOTE PSYCH ---
Psych (Inpt) Progress Note Progress Note Include the following elements, when applicable: Involvement in the active treatment of the patient with behavioral observations of the patient and the patient's response to the treatment. Review of the ongoing treatment process in the context of the treatment plan. Indication of how multi-disciplinary staff members are carrying out the treatment plan. Plans for future interventions and recommendations for revision of the treatment plan. Liaison with other physicians/providers. Pt notes that she is "OK" but slept poor last night. Had good effect with trazodone 50mg at 3am. She spoke at length about her need for anxiety meds but noted that she had no anxiety here. She has not taken gabapentin PRN anxiety as of yet. Denies SI or HI. Continued AHs of 10 voices talking. She feels that she is used to them so they are not bothersome. Current Medications Sig/Roseline Start time Last Medication Dose Route Stop Time Status Admin Acetaminophen 650 MG Q6P PRN 04/14 1515 AC 04/16 PO 1123 Al Hydroxide/Mg 30 ML Q4-6 PRN PRN 04/14 1515 AC Hydroxide PO Benztropine Mesylate 1 MG BID 04/14 1513 AC 04/18 PO 0950 Gabapentin 300 MG Q6P PRN 04/14 1530 AC PO [place] Carbonate 300 MG 0800,04/15 2200 AC 04/18 PO 0950 Magnesium Hydroxide 30 ML AT BEDTIME PRN 04/14 1515 AC PO Melatonin 3 MG AT BEDTIME 04/18 2200 UNVr PO Nicotine 14 MG 04/16 08 AC 04/18 TOP 0950 Nicotine 2 MG Q2P PRN 04/14 1515 AC 04/18 PO 1437 Risperidone 1 MG 04/17 0800 AC 04/18 PO 0950 Risperidone 2 MG 04/16 2200 AC 04/17 PO 2122 Trazodone HCl 50 MG AT BEDTIME 04/18 220 UNVr PO Trazodone HCl 50 MG AT BEDTIME NEED.. 04/14 1530 DC 04/18 PO 0300 Laboratory Tests 04/18 0615 Toxicology [place] (0.6 - 1.2 mmol/L) 0.4 L Vital Signs Result Date Time B/P 103/62 04/18 1557 Pulse 81 04/18 1557 Temp 97.7 04/18 0801 Pulse Ox 97 04/14 1611 O2 Delivery Room Air 04/14 161 Resp 12 04/14 161 MSE Appears as stated age. Cooperative behavior, good, appropriate eye contact. Nl speech rate and prosody. No psychomotor retardation or agitation. Mood OK Affect irritable,constricted, appropriate, non-liable. Linear and goal directed thought process. Denies SI or HI. Does not appear to be responding to internal stimuli. ++AVHs, no paranoia, or delusions. I/J: limited A/P: Pt with schizophrenia who presented with worsening psychosis now improved though continues to have marked AHs. - Li level of 0.4, increase lithium 300mg BID to 300mg daily + 450mg nightly - Traozdone 50mg qhs - Melatonin 3mg for sleep - Continue other medications at current dose - Dispo per primary team
[2016-04-18 19:47] VITALS: BP 109/70; BP 118/64
--- NOTE | 2016-04-18 22:20 | NUR ---
PATIENT IS ALERT AND ORIENTED X3; SHE IS PLEASANT AND COOPERATIVE WITH TREATMENT PLAN; SHE WAS OUT IN [facility] FIRST PART OF EVENING, THAT WENT TO BED EARLY, NOT ATTENDING WRAP UP; SHE DENIES S/I OR H/I AT THIS TIME; INTERNAL STIMULI DO NOT APPEAR TO BE TROUBLING HER.
[2016-04-19 09:01] VITALS: BP 121/72
[2016-04-19 12:18] VITALS: BP 124/63
--- NOTE | 2016-04-19 14:24 | CP SOUTH PROGRESS NOTE PSYCH ---
Psych (Inpt) Progress Note Progress Note Include the following elements, when applicable: Involvement in the active treatment of the patient with behavioral observations of the patient and the patient's response to the treatment. Review of the ongoing treatment process in the context of the treatment plan. Indication of how multi-disciplinary staff members are carrying out the treatment plan. Plans for future interventions and recommendations for revision of the treatment plan. Liaison with other physicians/providers. Progress Note: Pt feels that she was "knocked out last night" explaining that she slept very well. Denies feeling morning sedation as result. Notes stable mood. Continues to have AHs of >10 voices which she does not think are bothersome, "its normal for me now." She was able to read a book. She is in very good mood today. Denies SI or HI. Current Medications Sig/Roseline Start time Last Medication Dose Route Stop Time Status Admin Acetaminophen 650 MG Q6P PRN 04/14 1515 AC 04/19 PO 1251 Al Hydroxide/Mg 30 ML Q4-6 PRN PRN 04/14 1515 AC Hydroxide PO Benztropine Mesylate 1 MG BID 04/14 1513 AC 04/19 PO 0948 Gabapentin 300 MG Q6P PRN 04/14 1530 AC PO [place] Carbonate 300 MG DAILY AC 04/19 0700 AC 04/18 PO 1950 [place] Carbonate 450 MG AT BEDTIME 04/18 2200 AC 04/18 PO 1954 [place] Carbonate 300 MG 0800,04/15 2200 DC 04/18 PO 0950 Magnesium Hydroxide 30 ML AT BEDTIME PRN 04/14 1515 AC PO Melatonin 3 MG AT BEDTIME 04/18 2200 AC 04/18 PO 1951 Nicotine 14 MG 04/16 AC 04/19 TOP 0948 Nicotine 2 MG Q2P PRN 04/14 1515 AC 04/18 PO 1437 Risperidone 1 MG 04/17 0800 AC 04/19 PO 0948 Risperidone 2 MG 04/16 2200 AC 04/18 PO 1948 Trazodone HCl 50 MG AT BEDTIME 04/18 2199 AC 04/18 PO 1948 Trazodone HCl 50 MG AT BEDTIME NEED.. 04/14 1530 DC 04/18 PO 0300 Laboratory Tests 04/18 614 Toxicology [place] (0.6 - 1.2 mmol/L) 0.4 L Vital Signs Result Date Time B/P 124/63 04/19 1218 Pulse 83 04/19 1218 Temp 96.1 04/19 0901 Resp 20 04/18 1947 Pulse Ox 97 04/14 1611 O2 Delivery Room Air 04/14 1611 MSE Appears as stated age. Cooperative behavior, good, appropriate eye contact. Nl speech rate and prosody. No psychomotor retardation or agitation. Mood OK Affect euthymic, constricted, slightly inappropriate, non-liable. Linear and goal directed thought process. Denies SI or HI. Does not appear to be responding to internal stimuli. ++AVHs of mulitple voices, are not bothersome, no paranoia, or delusions. I/J: limited A/P: Pt with schizophrenia who presented with worsening psychosis now improved though continues to have marked AHs which are not bothersome and which patient states are her baseline - Li level of 0.4 one day ago, increased lithium 300mg BID to 300mg daily + 450mg nightly, continue at this dose - Traozdone 50mg qhs - Melatonin 3mg for sleep - Continue other medications at current dose - Dispo per primary team
--- NOTE | 2016-04-19 14:43 | NUR ---
reported sleeping well last night. Is out in community interacting with peers. Appears distracted at times. Is happy with her psychosis acting like nothing happened. Mood is stable, full range of affect. Denied thoughts of self ahrm when asked
[2016-04-19 15:51] VITALS: BP 105/56
[2016-04-19 19:40] VITALS: BP 121/64
--- NOTE | 2016-04-19 21:52 | NUR ---
PT. ATTENDED WRAP UP THIS EVENING SMILING SOCIALIZING WITH OTHERS MAYANK OCAMPO HEARD HER TALKING TO SELF IN BATHROOM ASSESS SITUATION STATED " I AM FINE JUST GOING TO SHOWER". THEN AFTER LEAVING ROOM PT. GOT INTO SHOWER HEARD HER YELL AGAIN ASSESSED SITUATION "I GOT SOAP IN MY EYE".
--- NOTE | 2016-04-20 08:47 | CP SOUTH PROGRESS NOTE PSYCH ---
Psych (Inpt) Progress Note Progress Note Include the following elements, when applicable: Involvement in the active treatment of the patient with behavioral observations of the patient and the patient's response to the treatment. Review of the ongoing treatment process in the context of the treatment plan. Indication of how multi-disciplinary staff members are carrying out the treatment plan. Plans for future interventions and recommendations for revision of the treatment plan. Liaison with other physicians/providers. Progress Note: [I discussed this patient's progress to date, current mental status, treatment process in the context of the treatment plan, and discharge planning with staff/ team in the daily morning inpatient team meeting. I also met with the patient myself in individual session.] SUBJECTIVE: "I'm peachy." OBJECTIVE: Current Medications Sig/Roseline Start time Last Medication Dose Route Stop Time Status Admin Acetaminophen 650 MG Q6P PRN 04/14 1515 AC 04/19 PO 1251 Al Hydroxide/Mg 30 ML Q4-6 PRN PRN 04/14 1515 AC Hydroxide PO Benztropine Mesylate 1 MG BID 04/14 1513 AC 04/20 PO 1213 Gabapentin 300 MG Q6P PRN 04/14 1530 AC PO [place] Carbonate 300 MG DAILY@0804/21 0800 AC PO [place] Carbonate 300 MG DAILY AC 04/19 0700 DC 04/20 PO 1213 [place] Carbonate 450 MG AT BEDTIME 04/18 2200 AC 04/19 PO 2222 Magnesium Hydroxide 30 ML AT BEDTIME PRN 04/14 1515 AC PO Melatonin 3 MG AT BEDTIME 04/18 2200 AC 04/19 PO 2222 Nicotine 14 MG 04/16 0800 AC 04/19 TOP 0948 Nicotine 2 MG Q2P PRN 04/14 1515 AC 04/18 PO 1437 Risperidone 3 MG 04/20 2200 AC PO Risperidone 1 MG 04/17 0800 DC 04/19 PO 0948 Risperidone 2 MG 04/16 2200 DC 04/19 PO 2223 Trazodone HCl 50 MG AT BEDTIME 04/18 2200 AC 04/19 PO 2222 Vital Signs Date Time Temp Pulse Resp B/P Pulse O2 O2 Flow FiO2 Ox Delivery Rate 04/19 1940 97.2 82 121/64 04/19 1551 83 105/56 ASSESSMENT: Reviewed chart. Over the weekend, patient continued to endorse AH of > 10 voices which she reported were not bothersome to her. Byars level resulted 0.4. [place]ars was increased from 300mg BID, to 300mg QAM and 450mg QPM. Risperdal 1mg QAM and 2mg QPM were maintained. Melatonin 3mg was started at HS for insomnia which yielded good effect. On encounter today, the patient presented withdrawn and resting in bed. She refused to meet with this narrative writer in office, because she didn't want to get out of bed. She reported improved sleep throughout the night on Melatonin 3mg, but reported difficulty falling asleep d/t +AH of multiple voices last night. Patient could not identify how many voices she heard, but described AH as "annoying" due to trying to differentiate whether these voices were the voice of a person versus AH. She described that AH of voices "talk all at once, they want my attention and tell me what to do...take a shower, eat, go to sleep." The patient denied that voices tell her to harm herself or others. She denied AH at present. She denied VH. There was no evidence of PI, or delusions. She reported appetite as "good." Patient reported anxiety however is yet to take prn Gabapentin. She reports anxiety today is 6-7/10 (10 being the worst). When asked when anxiety is worst, patient could not identify a time of the day, or triggers surrounding anxiety. Patient was encouraged to trial prn Gabapentin when she experiences onset of anxiety. She reported depression of 5/10 (10 being the worst) in the context of remaining in the hospital. Patient denied passive/active suicidal ideation ideation, plans and intent. She denied homicidal ideation. Affect constricted and non-labile. Mood "ok" despite previous report of anxiety. Thought process linear and organized. She appeared resistant to discussing after care treatment planning with this narrative writer. Patient reported tolerating all medications well and denied untoward medication effects. Will continue current medications, and change Risperdal dosing from 1mg QAM and 2mg QHS to Risperdal 3mg at HS to target +AH. Reviewed the risk/benefit/ SE profiles of Risperdal with the patient, including irreversible movement disorders and metabilic risks. Patient verbalized understanding of med education and was agreeable to changing Risperdal scheduling to further target +AH. AIMS= 0. PLAN: 1. Byars level scheduled tomorrow at 0600. 2. Discontinue Risperdal 1mg QAM and 2mg QHS. Start Risperdal 3mg at HS to target AH. 3. Continue monitoring the patient on unit for safety, mood and psychosis. 4. Encourage participation in milieu activities. 5. Offer prn Gabapentin for anxiety. 6. Dispo planning per primary team.
--- NOTE | 2016-04-20 13:42 | NUR ---
PT SPENT ALL MORNING IN HER ROOM IN BED. SHE WAS CALLED NUMEROUS TIMES FOR VITALS AND MEALS AND MEDS. AT ONE POINT SHE STATED SHE DID NOT WANT TO TAKE HER MEDS BUT AGREED THAT SHE NEEDED HER MEDS SHE JUST DID NOT WANT TO GET OOB.WITH MUCH ENC SHE DID GET OOB FOR HER MEDS AND SHE IS IN GROUPS AT THIS TIME
--- NOTE | 2016-04-20 15:09 | SOCIAL WORKER PROG NOTE PSYCH ---
Social Work Progress Note Progress Note Patient reported having a fine weekend, reported playing games with peers and mother visited daily. Patient continues to express her desire to return home soon. Today we started to discuss aftercare plan and I informed her that our recommendation at this time is to do IOP again. Patient is adamantly refusing, stating she will go back to outpatient treatment but will not do intensive outpatient treatment. This blurb writer expressed concern with this plan and stressed desire to go to IOP. Patient aware that this blurb writer will be notifying her parents about her request for aftercare plan. I attempted to call her mother but received voicemail and voicemail was full. Will try again and try to have parents come in tomorrow to discuss this in person together. Patient refusing to discuss more in further and stated she will call [facility] when she discharges hospital to return to their outpatient program. She denies SI/HI/VH today but continues to report +AH with no change, reporting numerous voices "chatting" all at once.
--- NOTE | 2016-04-20 15:10 | SOCIAL WORKER PROG TO GOALS ---
Progress Toward Goals Strengths/Capabilities: The patient appears to have a supportive mother. Physical Limitations (Interventions): None noted Patient Identified Trmt Goals: "I just want to get better and go home." Discharge Plan: IOP Problem/Goals #1 Problem #1: psychosis Goal (Short Term): Improve ability to see world as others do Be free of false perceptions and [see/hear/smell/feel] things as others do Be free of false beliefs Be free of thoughts that others are out to get you Spend 2-3 hours each week visiting with others Report feeling comfortable spending time with others Be free of negative thoughts to hurt self Goal (Certified Nurse Practitioner): Identify 2 positive traits per week about myself Identify 2 things I have to look forward to Identify 2 positive people in my life and 1 thing I appreciate about them Interventions: Learn ways to manage medications accordingly and identify positive supports to manage unusual symptoms that may occur. Progress: Patient continues to report +AH, denies SI. She reports mutliple voices "chatting" at once but can not recognize what they are saying. Patient refusing aftercare recommendation of IOP at this time. Plan to have parents come in for 2nd meeting to discuss discharge plan more in detail in person.
[2016-04-20 16:05] VITALS: BP 109/56
[2016-04-20 20:07] VITALS: BP 116/62
--- NOTE | 2016-04-20 22:34 | NUR ---
Pt is out in the community affect is in full range, pt is observed to be responding to internal stimuli during the raghavendra shift, pt vital signs are stable appetite is good, Will continue to monitor the pt overnight.
[2016-04-21 12:40] VITALS: BP 106/56
--- NOTE | 2016-04-21 12:50 | NUR ---
Pt is A&O X 3, was her room sleeping until 12 noon, refused to come out for her vital sign and morning medication until delivered to her in her room. Pt has not attended any group therapies/ activities, mood and affect is stable/ apathetic, but denies any AH&VH, suicidal thinking and homicidal ideation.
[2016-04-21 13:26] VITALS: BP 106/56
--- NOTE | 2016-04-21 16:06 | CP SOUTH PROGRESS NOTE PSYCH ---
Psych (Inpt) Progress Note Progress Note Include the following elements, when applicable: Involvement in the active treatment of the patient with behavioral observations of the patient and the patient's response to the treatment. Review of the ongoing treatment process in the context of the treatment plan. Indication of how multi-disciplinary staff members are carrying out the treatment plan. Plans for future interventions and recommendations for revision of the treatment plan. Liaison with other physicians/providers. Progress Note: [I discussed this patient's progress to date, current mental status, treatment process in the context of the treatment plan, and discharge planning with staff/ team in the daily morning inpatient team meeting. I also met with the patient myself in individual session.] SUBJECTIVE: "When am I going home?" OBJECTIVE: Current Medications Sig/Roseline Start time Last Medication Dose Route Stop Time Status Admin Acetaminophen 650 MG Q6P PRN 04/14 1515 AC 04/19 PO 1251 Al Hydroxide/Mg 30 ML Q4-6 PRN PRN 04/14 1515 AC Hydroxide PO Benztropine Mesylate 1 MG BID 04/14 1513 AC 04/21 PO 1152 Gabapentin 300 MG Q6P PRN 04/14 1530 AC PO [place] Carbonate 600 MG 04/21 220 UNVr PO [place] Carbonate 300 MG DAILY@0800 04/21 0800 AC 04/21 PO 1152 [place] Carbonate 450 MG AT BEDTIME 04/18 2200 DC 04/20 PO 2131 Magnesium Hydroxide 30 ML AT BEDTIME PRN 04/14 1515 AC PO Melatonin 3 MG AT BEDTIME 04/18 2200 AC 04/20 PO 2131 Nicotine 14 MG 04/16 0800 AC 04/21 TOP 1152 Nicotine 2 MG Q2P PRN 04/14 1515 AC 04/18 PO 1437 Risperidone 1 MG 04/22 08 CAN PO Risperidone 2 MG 0800,04/22 0800 UNVr PO Risperidone 2 MG 0800,04/21 2200 CANr PO Risperidone 3 MG 04/20 2200 r 04/20 PO 04/21 2300 2132 Trazodone HCl 50 MG AT BEDTIME 04/18 2200 AC 04/20 PO 2131 Vital Signs Date Time Temp Pulse Resp B/P Pulse O2 O2 Flow FiO2 Ox Delivery Rate 04/21 1326 92 106/56 04/21 1240 92 10656 04/20 2006 96.8 76 116/62 ASSESSMENT: Met with patient today, together with Nayana Garcia LCSW, the patient's mother Modesta, and step-father Malcom for a family meeting and review of discharge planning. During family meeting the patient showed limited insight and judgment into psychiatric illness, was observed arguing with her mother and step-father over treatment recommendation for IOP level of care and continued medication management. She was perseverative about discharging home. Patient attempted multiple times to negotiate with primary treatment team and mother, and step- father to participate in a less intensive after care treatment plan. Patient was noted blaming her mother and step-father for current hospitalization, and was unable to see how her medication nonadherence and inconsistent attendance at previous IOP programs have contributed to current hospitalization and psychiatric decompensation. Patient's mother and step-father reported that the patient is scheduled for a competency hearing on 04/28/16, related previously failed psychiatric treatment programs and legal charge from this year for disorderly conduct. On encounter, patient was A&Ox4. She continued to report +AH of >20 voices. She would not elaborate on the content of AH. She denied that AH were command in nature today. She reported decreased AH at bedtime, but continues to hear them during the day. She denied visual hallucinations. She continues to report "high anxiety and depression", but would not score them on a 0-10 scale. Appeared very argumentative during family meeting, and unable to see her parents' concern over her lifestyle choices. She denied active/passive suicidal ideation, plans and intent. She denied homicidal ideation. There was no evidence of PI, or delusions. Reported sleep and appetite were fair. Patient continued to refused switch to Risperdal DUEÑAS. PLAN: 1. Discontinue Risperdal 3mg HS after tonight's dose. Then, increase Risperdal to 4mg day, in divided doses, at 2mg BID to further target AH starting tomorrow morning. 2. Continue Cogentin 1mg BID. 3. Increase [place] from 300mg QAM/450mg QHS to 300mg QAM and 600mg QHS for mood stabilization/depression. 4. [place] level scheduled on 04/24/16 at 0600. 5. Dispo planning per primary team.
--- NOTE | 2016-04-21 16:28 | SOCIAL WORKER PROG NOTE PSYCH ---
Social Work Progress Note Progress Note Patient had another family meeting today with her parents, this science writer and Daksha Davis APRN. Together we discussed patients aftercare plan from the hospital. With much resistence, patient has agreed to attend IOP at . Patient does not appear motivated for treatment at this time and appears to be only agreeing to attend in order to discharge the hospital and appease her parents. Patients parents expressed their concerns with patients coping skills and attitude towards treatment and getting better. Patient continued to report AH at present and did make some comments about being depressed. Patient has been sleeping throughout the day to late hours in the afternoon and she acknowledged today that this is due to depression "from being in the hospital." Patient appears to have very little insight into her mental health and the desire to get better. She was argumentative with her parents and was unable to hear their concerns. Patients parents are positive supports for parents but have informed patient that if she does not comply with treatment recommendations then they will not support her financial and living situation going forward. The family is intenting to move to [facility] in the next 2 weeks in [place], [place]. Patients parents would like VNS to be arranged for when she moves there and they agree to distribute her medications the week before moving. Patient has agreed to this as well.
[2016-04-21 16:29] VITALS: BP 99/48
[2016-04-21 20:01] VITALS: BP 118/69
--- NOTE | 2016-04-21 22:11 | NUR ---
PT IS CALM, COOPERATIVE WITH STAFF AND PEERS, AND COMPLAINT WITH UNIT RULES. PT MOOD IS STABLE WITH AN AFFECT THAT IS BRIGHT AT TIMES, THOUGH WILL ALSO PRESENT AT FULL RANGE. PT APPETITE IS NORMAL, COMMUNICATION IS NORMAL. PT DENIES SI AT THIS TIME.
[2016-04-22 11:58] VITALS: BP 87/68
--- NOTE | 2016-04-22 12:34 | NUR ---
Pt isolative and slept until about 1130am, up for vitals and meds, no issues or complaints reported or observed, did not attend any groups thus far today, calm, pleasant, mood stable with full range affect, no overt s/sz yet re: JAMES.
--- NOTE | 2016-04-22 14:31 | CP SOUTH PROGRESS NOTE PSYCH ---
Psych (Inpt) Progress Note Progress Note Include the following elements, when applicable: Involvement in the active treatment of the patient with behavioral observations of the patient and the patient's response to the treatment. Review of the ongoing treatment process in the context of the treatment plan. Indication of how multi-disciplinary staff members are carrying out the treatment plan. Plans for future interventions and recommendations for revision of the treatment plan. Liaison with other physicians/providers. Progress Note: [I discussed this patient's progress to date, current mental status, treatment process in the context of the treatment plan, and discharge planning with staff/ team in the daily morning inpatient team meeting. I also met with the patient myself in individual session.] SUBJECTIVE: "What's going on?" OBJECTIVE: Current Medications Sig/Roseline Start time Last Medication Dose Route Stop Time Status Admin Acetaminophen 650 MG Q6P PRN 04/14 1515 AC 04/19 PO 1251 Al Hydroxide/Mg 30 ML Q4-6 PRN PRN 04/14 1515 AC Hydroxide PO Benztropine Mesylate 1 MG BID 04/14 1513 AC 04/22 PO 1150 Gabapentin 300 MG Q6P PRN 04/14 1530 AC PO [place] Carbonate 600 MG 04/21 2200 AC 04/21 PO 2203 [place] Carbonate 300 MG DAILY@04/21 0800 AC 04/22 PO 1150 [place] Carbonate 450 MG AT BEDTIME 04/18 2200 DC 04/20 PO 2131 Magnesium Hydroxide 30 ML AT BEDTIME PRN 04/14 1515 AC PO Melatonin 5 MG 04/21 2200 AC 04/21 PO 2203 Melatonin 3 MG AT BEDTIME 04/18 2200 DC 04/20 PO 2131 Nicotine 14 MG 04/16 0800 AC 04/22 TOP 1150 Nicotine 2 MG Q2P PRN 04/14 1515 AC 04/18 PO 1437 Risperidone 1 MG 04/22 08 CAN PO Risperidone 2 MG 0800,04/22 0800 AC 04/22 PO 1150 Risperidone 2 MG 0800,04/21 220 CAN PO Risperidone 3 MG 04/20 2200 DC 04/21 PO 04/21 2300 2203 Trazodone HCl 50 MG AT BEDTIME 04/18 2200 AC 04/21 PO 2203 Vital Signs Date Time Temp Pulse Resp B/P Pulse O2 O2 Flow FiO2 Ox Delivery Rate 04/22 1158 92 87/68 04/21 2000 97.5 83 118/69 04/21 1629 73 99/48 ASSESSMENT: Patient signed a termination of voluntary last evening, 04/21/16. Met with the patient today, together with Nayana Garcia LCSW and Adele Ang RN. The patient presented A&Ox4. Speech was variable. Eye contact was poor. Reviewed discharge planning with the patient, her limited treatment progress, and limited insight/judgement into psychiatric symptoms and hx of past/recent risky behaviors. Recommendation for state hospitalization was made by treatment team. Patient was initially irritable, verbalized being willing to partake in IOP given new treatment recommendation (which yesterday patient attempted to negotiate out of to follow-up with a lower level of care). Patient with a history of treatment nonadherence with IOP programs and medication nonadherence. Concern is that patient would be discharged from [facility], not follow-up with IOP level of care and continue medication nonadherence which would icnrease the likelihood of relapse of psychiatric symptoms and risky behaviors resulting in unsafe behavior. During two previous family meeting with the patient's stepfather (Malcom) and mother (Modesta) they expressed at length that patient had been nonadherent with IOP level of care and medication. They expressed desire for patient to pursue longer inpatient placement due to history of risky and unstable behaviors, and not feeling safe having the patient return home given her history of treatment/medication nonadherence and unstable/risky behaviors. This handbook writer and Nayana Garcia LCSW reviewed the process of probate for involuntary hospitalization versus voluntary hospitalization. The patient agreed to sign in voluntarily for state hospitalization. On encounter, patient continued to endorse +AH of >20 voices. Patient would not elaborate on content of AH, but reported AH was not command in nature. Patient reported AH of the same intensity, since initial [facility] admission. She denied visual hallucinations. There was no evidence of paranoid ideation at present or of delusions. She denied active/passive suicidal ideation, plans or intent. She denied homicidal ideation. Insight and judgment remained limited. Thought process appeared linear. Thought content was mostly appropriate. Patient reported tolerating increase in Risperdal well and denied untoward medication effects. She is agreeable to continue taking medications while hospitalized. She refused switch from Risperdal po formulation to DUEÑAS to increase medication adherence. PLAN: 1. Await state bed availability. 2. Continue monitoring the patient on unit for safety, suicidal ideation, psychosis, and mood. 3. Continue current medications, will reassess need to increase Risperdal tomorrow to further target AH. 4. Encourage participation in milieu activities.
--- NOTE | 2016-04-22 15:21 | SOCIAL WORKER PROG NOTE PSYCH ---
Social Work Progress Note Progress Note Met today with patient, Daksha Agudelo [place], and [facility] community health nursing director Adele Ang. Together we discussed our concern for patients minimal progress in treatment thus far in the hospital and also the concern for her safety when she discharges the hospital. Patient exhibited poor insight into her mental illness and was unable to understand our concerns. Patient put in 3 day paper yesterday which would on Wednesday. Patient was notified in our meeting that we do not feel safe discharging her upon the expiration of the 3 day paper and we are going to need to request a probate hearing in order to refer [facility] to a [facility] as [facility]. We then further explained to patient the process of a probate hearing vs going to the [facility] voluntarily. Patient understood and decided to sign in voluntarily. Patient signed voluntary form and patients mother has been informed of this decision. Patient was calm and cooperative during this process and did not resist as much as anticipated. Patients mother has been notified and she is in agreement with referral to state [facility]. I will move forward with referral to [facility] tomorrow.
[2016-04-22 16:05] VITALS: BP 93/64
[2016-04-22 19:37] VITALS: BP 113/66
--- NOTE | 2016-04-22 22:06 | NUR ---
PT IS VISIBLE ON UNIT, SOCIALIZING WITH PEERS AND WATCHING TV IN KITCHEN. HAD VISIT FROM MOTHER THROUGHOUT THE EVENING. VERY PLEASANT AND COOPERATIVE. ATTENDED WRAP UP AND PARTICIPATED. NO COMPLAINTS OR SI REPORTED. PT HAS A STABLE MOOD AND FULL RANGE AFFECT.
--- NOTE | 2016-04-23 06:48 | NUR ---
PATIENT SLEPT ALL NIGHT.
--- NOTE | 2016-04-23 09:57 | CP SOUTH PROGRESS NOTE PSYCH ---
Psych (Inpt) Progress Note Progress Note Include the following elements, when applicable: Involvement in the active treatment of the patient with behavioral observations of the patient and the patient's response to the treatment. Review of the ongoing treatment process in the context of the treatment plan. Indication of how multi-disciplinary staff members are carrying out the treatment plan. Plans for future interventions and recommendations for revision of the treatment plan. Liaison with other physicians/providers. Progress Note: [I discussed this patient's progress to date, current mental status, treatment process in the context of the treatment plan, and discharge planning with staff/ team in the daily morning inpatient team meeting. I also met with the patient myself in individual session.] SUBJECTIVE: "I'm fine. What? I just woke up." OBJECTIVE: Current Medications Sig/Roseline Start time Last Medication Dose Route Stop Time Status Admin Acetaminophen 650 MG Q6P PRN 04/14 1515 AC 04/19 PO 1251 Al Hydroxide/Mg 30 ML Q4-6 PRN PRN 04/14 1515 AC Hydroxide PO Benztropine Mesylate 1 MG BID 04/14 1513 AC 04/22 PO 2237 Gabapentin 300 MG Q6P PRN 04/14 1530 AC PO [place] Carbonate 600 MG 04/21 2200 AC 04/22 PO 2238 [place] Carbonate 300 MG DAILY@04/21 0800 AC 04/22 PO 1150 Magnesium Hydroxide 30 ML AT BEDTIME PRN 04/14 1515 AC PO Melatonin 5 MG 04/21 2200 AC 04/22 PO 2238 Nicotine 14 MG 0800 / 0800 AC 04/22 TOP 1150 Nicotine 2 MG Q2P PRN 04/14 1515 AC 04/18 PO 1437 Risperidone 2 MG 0800,04/22 0800 AC 04/22 PO 2238 Trazodone HCl 50 MG AT BEDTIME 04/18 2200 AC 04/22 PO 2237 Vital Signs Date Time Temp Pulse Resp B/P Pulse O2 O2 Flow FiO2 Ox Delivery Rate 04/22 1937 96.6 85 113/66 04/22 1605 92 93/64 04/22 1158 92 87/68 ASSESSMENT: Attempted to meet with patient at 9:55AM, who appeared withdrawn resting in bed. Patient became irritable upon this typewriter assembler calling her name. Patient refused to meet with typewriter assembler, and reported "come back later." Met with patient at 1:48PM in her room, where she was observed laying in bed, withdrawn, irritable, and guarded. Affect constricted, with blanket over body. Mood was "fine." Offered short responses to typewriter assembler's questions. Patient was minimally interactive, resting in bed. She continued to report depression, anxiety, and poor motivation; she would not rate anxiety or depresson on 0-10 scale. Denied AH at present, but reported increased +AH in intensity and volume at bedtime. Continued to report AH of >20 voices. She would not describe the content of AH. She denied that voices were command in nature. Reported poor sleep last night. Reported good appetite. She denied passive and active suicidal ideation, plans and intent. She denied homicidal ideation. She denied visual hallucinations. Patient did not appear responding to internal stimuli on encounter. No evidence of paranoia or delusions on encounter. Thought process linear. Thought content mostly appropriate, however appeared very guarded and not forthcoming. Continues to demonstrate limited insight and judgement. Patient reported tolerating medications well and denied untoward medication effects. Agreeable to increase Risperdal to 3mg at HS to further target AH. AIMS = 0. Patient refused to switch from Risperdal PO formulation to DUEÑAS for increased medication adherence. PLAN: 1. Increase risperdal to 3mg at HS to target AH. Continue Risperdal 2mg QAM. 2. Continue monitoring patient on unit for safety, mood and psychosis. 3. Await bed placement for state hospitalization.
[2016-04-23 12:14] VITALS: BP 93/52
--- NOTE | 2016-04-23 12:26 | SOCIAL WORKER PROG NOTE PSYCH ---
Social Work Progress Note Progress Note Pt reports feeling "depressed", and offers how she did sign in, but only in hopes that her time in the hospital will be shorter. She reports wanting to go home, and when we explored the reason for hospitialization, she offered "I wasn' t
--- NOTE | 2016-04-23 13:51 | NUR ---
PT HAS BEEN ISOLATIVE ALL MORNING. SHE REPORTS THAT SHE IS "NOT A MORNING PERSON" AND EVENING SHIFT DOES REPORT THAT SHE IS MORE SOCIAL ON EVES. SHE TOOK HER MEDS WITHOUT A PROBLEM AND WHEN ASKED SHE DENIED SUICIDAL THOUGHTS
[2016-04-23 16:04] VITALS: BP 111/56
[2016-04-23 19:54] VITALS: BP 119/63
--- NOTE | 2016-04-23 21:41 | NUR ---
PT HAS CALM, COOPERATIVE WITH STAFF AND PEERS, AND COMPLIANT WITH UNIT RULES THROUGHOUT SHIFT. PT RECIEVED A VISIT FROM MOTHER THIS AFTERNOON, WHICH SHE SEMED TO BE VERY APPRECIATIVE OF. PT MOOD IS STABLE, AFFECT IS SLIGHTLY BRIGHT, SPEAKS WITH CHILD-LIKE TONE, APPETITE IS NORMAL. PT DENIES SI AT THIS TIME.
--- NOTE | 2016-04-24 04:30 | NUR ---
PT SLEPT WELL, NO ISSUES.
--- NOTE | 2016-04-24 11:42 | SOCIAL WORKER PROG NOTE PSYCH ---
Social Work Progress Note Progress Note Voice message left for Cinda Braden as her office and cell phone regarding referral to [facility].
[2016-04-24 11:58] VITALS: BP 99/53
--- NOTE | 2016-04-24 11:58 | SOCIAL WORKER PROG NOTE PSYCH ---
Social Work Progress Note Progress Note Met with pt 1:1. Pt presents with a flat depressive affect. She was able to get out of bet and meet in the social work office. Pt expresses that she is feeling a little bit better today because she was able to wake herself up today, but still feels depresses because she will be going to [facility] instead of going home. Pt says she still hears voices but does not know what the voices says as "they are just chatter." She denies that the voices are command in nature. Pt denies any active SI/HI. Encouraged pt to participate in the unit activities rather than staying in bed. Pt expresses that there is no point to participate since she is just going to another hospital. Explained to her that the activities are intended on helping improve her mood. Pt continues provide minimal insight stating that the only thing that will improve her mood is to go home. Pt continues to refuse to participate and had no insight as to why she is going to [facility].
--- NOTE | 2016-04-24 12:15 | CP SOUTH PROGRESS NOTE PSYCH ---
Psych (Inpt) Progress Note Progress Note Include the following elements, when applicable: Involvement in the active treatment of the patient with behavioral observations of the patient and the patient's response to the treatment. Review of the ongoing treatment process in the context of the treatment plan. Indication of how multi-disciplinary staff members are carrying out the treatment plan. Plans for future interventions and recommendations for revision of the treatment plan. Liaison with other physicians/providers. Progress Note: [I discussed this patient's progress to date, current mental status, treatment process in the context of the treatment plan, and discharge planning with staff/ team in the daily morning inpatient team meeting. I also met with the patient myself in individual session.] SUBJECTIVE: "I'm here." OBJECTIVE: Current Medications Sig/Roseline Start time Last Medication Dose Route Stop Time Status Admin Acetaminophen 650 MG Q6P PRN 04/14 1515 AC 04/19 PO 1251 Al Hydroxide/Mg 30 ML Q4-6 PRN PRN 04/14 1515 AC Hydroxide PO Benztropine Mesylate 1 MG BID 04/14 1513 AC 04/24 PO 1217 Gabapentin 300 MG Q6P PRN 04/14 1530 AC PO [place] Carbonate 600 MG 04/21 2200 AC 04/23 PO 2053 [place] Carbonate 300 MG DAILY@04/21 0800 AC 04/24 PO 1217 Magnesium Hydroxide 30 ML AT BEDTIME PRN 04/14 1515 AC PO Melatonin 5 MG 04/21 2200 AC 04/23 PO 2053 Nicotine 14 MG 799 04/ 0800 AC 04/24 TOP 1217 Nicotine 2 MG Q2P PRN 04/14 1515 AC 04/18 PO 1437 Risperidone 2 MG 04/24 0800 AC 04/24 PO 1217 Risperidone 3 MG 04/23 2200 AC 04/23 PO 2053 Risperidone 2 MG 0800,04/22 0800 DC 04/23 PO 1122 Trazodone HCl 50 MG AT BEDTIME 04/18 2200 AC 04/23 PO 205 Vital Signs Date Time Temp Pulse Resp B/P Pulse O2 O2 Flow FiO2 Ox Delivery Rate 04/24 1158 84 99/53 04/23 1954 97.1 86 119/63 04/23 1604 96 111/56 ASSESSMENT: Met with the patient today, in this scientific technical writer's office. She was A&Ox4. She presented with constricted affect, occasionally smiled appropriately. Limited eye contact. Speech normal in rate, tone and volume. Continued to report +AH of 5-6 voices at present of "chatter." Reported AH as "annoying." Denied them to be command in nature. Reported AH is most intense at night, reported hearing "more voices" and "voices are louder." She denied visual hallucinations. No evidence of PI, or delusions. Thought process linear. Thought content mostly appropriate. Patient remained guarded on encounter. Offered minimal information. She reported depression of 6/10 (10 being the worst) and anxiety of 5-6/10 ( being the worst). She Reported anxiety and depression were secondary to her being here in hospital. She denied passive/active SI, plans and intent. Denied homicidal ideation. Reported appetite and sleep were good. Reported positive visits from her stepdad, mom, and grandma last evening. Reported she is refusing groups to prove that they don't work. Continued limited insight and judgement. Reported tolerating increase in HS Risperdal well, denied untoward medication effects. Remains agreeable to continue taking prescribed medications. Patient continued to refuse switch from Risperdal po formulation to DUEÑAS for increased medication adherence. PLAN: 1.Continue monitoring the patient on unit for safety, mood and psychosis. 2. Continue current medication regimen. Consider increase in AM Risperdal over the weekend to further target AH. 3. Continue to await state bed availability.
--- NOTE | 2016-04-24 13:12 | NUR ---
PT IS COMPLIANT AND COOPERATIVE. PT WAS ISOATLIVE THIS MORNING SLEEPING BUT IS NOW OUT IN COMMUNITY INTERACTING WELL [facility] STAFF AND PEERS. PT HAS NOT ATTENDED ANY GROUPS TODAY. PT MOOD IS STABLE [facility] A FULL RANGE AFFECT. PT DENIES SI.
--- NOTE | 2016-04-24 15:07 | SOCIAL WORKER PROG NOTE PSYCH ---
Social Work Progress Note Progress Note Online concurrent review done 04/24/15 [id number]
[2016-04-24 15:59] VITALS: BP 110/65
[2016-04-24 20:02] VITALS: BP 108/59
--- NOTE | 2016-04-24 22:01 | NUR ---
PT IS VISIBLE ON UNIT, SITTING IN LOUNGE CROCHETING WITH PEER. MOTHER VISITED THROUGHOUT THE EVENING. PLEASANT AND COOPERATIVE. ATTENDED WRAP UP MEETING AND PARTICIPATED. NO COMPLAINTS OR SI REPORTED. PT HAS A STABLE MOOD AND FULL RANGE AFFECT.
--- NOTE | 2016-04-25 12:28 | NUR ---
PT SLEPT UNTIL NOON AND DID NOT ATTEND ANY GROUPS. WHEN OOB SHE IS ALERT AND ORIENTED. SHE DENIES ANY SUICIDAL THOUGHTS AND IS TAKING HER MEDS WITHOUT A PROBLEM. SHE IS SOCIAL WITH HER PEERS AND IDENTIFIED THAT SHE LEARNED TO CLARENCE TO HELP WITH ANXIETY
[2016-04-25 13:27] VITALS: BP 96/48
--- NOTE | 2016-04-25 14:00 | CP SOUTH PROGRESS NOTE PSYCH ---
Psych (Inpt) Progress Note Progress Note Include the following elements, when applicable: Involvement in the active treatment of the patient with behavioral observations of the patient and the patient's response to the treatment. Review of the ongoing treatment process in the context of the treatment plan. Indication of how multi-disciplinary staff members are carrying out the treatment plan. Plans for future interventions and recommendations for revision of the treatment plan. Liaison with other physicians/providers. Progress Note: Pleasant, well related. Stated that voices are loud and described them as a commentary, judging other people and asking about other people; not command in nature. No overt disorganized beh noted. Stated that she sleeps too much b/c she is depressed. Has been active on the unit, engaged w/ peers. Family is coming this afternoon. Staff state she has been singinf to herself and disorganized but not grossly so. MSE: young woman, adequate grooming. Fidgety and anxious visibly. Mild psychomotor agitation. No tremor or other evidence of movement d/o. Good eye contact. Speech wnl. Mood anxious and affect full. Thought process linear grossly, not disorganized. No delusions elicited. Stated that she is hearing voices that ask her about other people, not command. Denied suicidal thoughts. Future oriented to leave the hospital. Insight fair, judgment adequate. A: 21 y/o woman w/ hx psychotic illness, presented disorganized, w/ chronic AH, pending bed at [facility]. Appeared somewhat less disorganized in eval compared to notes during the week. Risk chronic due to her tx resistant sx; no acute changes in risk assessment currently. Plan: Continue current plan of care. Educated her about sleep hygiene, to get up in the morning so she is better able to fall asleep at night time. Would not increase risperdal yet, re-eval tmr.
[2016-04-25 15:42] VITALS: BP 106/55
--- NOTE | 2016-04-25 18:17 | NUR ---
PT IS COMPLIANT AND COOPERATIVE. MOOD IS STABLE WITH A FULL RANGE OF AFFECT. PT DENIES SI AT THIS TIME, NO COMPLAINTS OFFERED. PT IS PRESENT IN THE COMMUNITY AND INTERACTING WELL WITH PEERS AND STAFF. VITALS ARE STABLE, APPETITE IS GOOD.
[2016-04-25 20:01] VITALS: BP 131/61
--- NOTE | 2016-04-26 06:48 | NUR ---
PATIENT SLEPT ALL NIGHT.
--- NOTE | 2016-04-26 13:56 | NUR ---
PT IS COMPLIANT AND COOPERATIVE. MOOD IS STABLE WITH A FULL RANGE OF AFFECT. PT DENIES SI AT THIS TIME, NO COMPLAINTS OFFERED. PT WAS WITHDRAWN AND SLEEPING UNTIL ABOUT 1230- HAS BEEN PRESENT ON UNIT SINCE. PT HAS BEEN SOCIAL WITH PEERS AND STAFF. PT REFUSED GROUPS, MORNING VITALS AND BREAKFAST. VITALS ARE STABLE. NO REPORTS OF AH.
--- NOTE | 2016-04-26 14:47 | CP SOUTH PROGRESS NOTE PSYCH ---
Psych (Inpt) Progress Note Progress Note Include the following elements, when applicable: Involvement in the active treatment of the patient with behavioral observations of the patient and the patient's response to the treatment. Review of the ongoing treatment process in the context of the treatment plan. Indication of how multi-disciplinary staff members are carrying out the treatment plan. Plans for future interventions and recommendations for revision of the treatment plan. Liaison with other physicians/providers. Progress Note: Stated that she is not as anxious anymore. Has been crocheting and making a scarf; stated that it was not difficult to learn. Stated that the voices were quiet because she was crocheting and that took her attention from the voices. Other coping skills include reading, watching movies, speaking with her family. Not grossly disorganized today. MSE: young woman, adequate grooming. Less fidgety today. No psychomotor agitation today. No movement d/o noted. Good eye contact. Speech wnl. Mood euthymic, affect full. Thought process linear grossly, not disorganized. Stated that she is hearing fewer voices b/c she is crocheting and her mind is being distracted. No delusions overall. Denied suicidal thoughts. Insight fair, judgment adequate. A: 21 y/o woman w/ hx psychotic illness, presented disorganized, w/ chronic AH, appears less disorganized today and yesterday compared to earlier in the week. Plan: Continue current plan of care. Educated her about coping skills including reading which use more focus and distract her better compared to passive activities such as watching tv.
[2016-04-26 15:54] VITALS: BP 116/60
[2016-04-26 19:46] VITALS: BP 121/59
--- NOTE | 2016-04-26 21:18 | NUR ---
Pt is out in the lounge most of the shift interacts with her peers appropriately compliant and cooperative with the staff. Vital signs are stable c/o no pain. Will continue to monitor the pt overnight.
--- NOTE | 2016-04-27 10:54 | CP SOUTH PROGRESS NOTE PSYCH ---
Psych (Inpt) Progress Note Progress Note Include the following elements, when applicable: Involvement in the active treatment of the patient with behavioral observations of the patient and the patient's response to the treatment. Review of the ongoing treatment process in the context of the treatment plan. Indication of how multi-disciplinary staff members are carrying out the treatment plan. Plans for future interventions and recommendations for revision of the treatment plan. Liaison with other physicians/providers. Progress Note: [I discussed this patient's progress to date, current mental status, treatment process in the context of the treatment plan, and discharge planning with staff/ team in the daily morning inpatient team meeting. I also met with the patient myself in individual session.] SUBJECTIVE: "I'm doing alright." OBJECTIVE: Current Medications Sig/Roseline Start time Last Medication Dose Route Stop Time Status Admin Acetaminophen 650 MG Q6P PRN 04/14 1515 AC 04/19 PO 1251 Al Hydroxide/Mg 30 ML Q4-6 PRN PRN 04/14 1515 AC Hydroxide PO Benztropine Mesylate 1 MG BID 04/14 1513 AC 04/26 PO 2214 Gabapentin 300 MG Q6P PRN 04/14 1530 AC PO [place] Carbonate 600 MG 04/21 2200 AC 04/26 PO 2214 [place] Carbonate 300 MG DAILY@04/21 0800 AC 04/26 PO 1135 Magnesium Hydroxide 30 ML AT BEDTIME PRN 04/14 1515 AC PO Melatonin 5 MG 04/21 2200 AC 04/26 PO 2214 Nicotine 14 MG 04/16 0800 AC 04/26 TOP 1135 Nicotine 2 MG Q2P PRN 04/14 1515 AC 04/24 PO 1511 Risperidone 2 MG 04/24 0800 AC 04/26 PO 1135 Risperidone 3 MG 04/23 2200 AC 04/26 PO 2215 Trazodone HCl 50 MG AT BEDTIME 04/18 2200 AC 04/26 PO 2214 Vital Signs Date Time Temp Pulse Resp B/P Pulse O2 O2 Flow FiO2 Ox Delivery Rate 04/27 1244 88 103/62 04/26 1946 97.5 87 121/59 04/26 1554 75 116/60 ASSESSMENT: Met with the patient today in office. She presented A&Ox4. Reported feeling "alright." Eye contact was appropriate. Speech was normal in rate, tone and volume. Behavior was calm and cooperative. Easily engaged in conversation with video games storywriter. Shared that she has been crocheting a scarf, and learned how to this past Wednesday. Reported this helps distract her from +AH. She reported hearing approx 10 voices at present of "just chatter." Reported AH is loudest at bedtime and in coffin maker. She denied AH to be command in nature. She denied visual hallucinations. She denied active and passive suicidal ideation, plans and intent. She denied homicidal ideation. There was no evidence of paranoia or delusions. Thought process linear. Thought content appropriate. Reported sleep and appetite were good. Insight and judgment slowly improving, but still limited. Patient reported tolerating medications well, and denied untoward medication effects. Patient agreeable to increase Risperdal to 3mg QAM, and continue 3mg at HS for AH. AIMS=0. No evidence of movement disorder present. PLAN: 1. Increase Risperdal from 2mg to 3mg QAM to further target AH. Continue Risperdal 3mg at HS. 2. Continue all other medications. 3. Continue monitoring patient on unit for safety, mood and psychosis. 4. Continue to await state bed availability.
[2016-04-27 12:44] VITALS: BP 103/62
--- NOTE | 2016-04-27 14:15 | NUR ---
Pt was in the milieu for part of the day. She was not visible in the milieu this morning. Pt stayed in bed, and refused to get up for vitals, and to eat breakfast. She did not attend planning meeting or focus group but did attend afternoon group. Pt did have lunch, and completed her afternoon vitals. Pt has denied suicidal thoughts, and thoughts to self harm.
[2016-04-27 15:55] VITALS: BP 102/65
--- NOTE | 2016-04-27 16:28 | SOCIAL WORKER PROG NOTE PSYCH ---
Social Work Progress Note Progress Note Met with patient this afternoon who presented in good spirits, denying SI at present and continuing to report mild AH. Patient reports that the voices have minimized and are not as present as they were previously. Patient did not appear to be responding to internal stimuli during our meeting and was focused and logical. Patient is aware that her application to [facility] has been submitted and there is a long waiting list. We discussed the possibility of patient clearing prior to bed becoming available and the potential of her not going if she continues to improve. Patients mood appears to be more consistent and less labile. She reports missing her "highs" but acknowledges that her lows were at times unbearable and she does not miss those. Patient appears to be gaining insight and judgements appears to be improving.
--- NOTE | 2016-04-27 16:29 | SOCIAL WORKER PROG TO GOALS ---
Progress Toward Goals Strengths/Capabilities: The patient appears to have a supportive mother. Physical Limitations (Interventions): None noted Patient Identified Trmt Goals: "I just want to get better and go home." Discharge Plan: IOP Problem/Goals #1 Problem #1: psychosis Goal (Short Term): Improve ability to see world as others do Be free of false perceptions and [see/hear/smell/feel] things as others do Be free of false beliefs Be free of thoughts that others are out to get you Spend 2-3 hours each week visiting with others Report feeling comfortable spending time with others Be free of negative thoughts to hurt self Goal (Knockout Man): Identify 2 positive traits per week about myself Identify 2 things I have to look forward to Identify 2 positive people in my life and 1 thing I appreciate about them Interventions: Learn ways to manage medications accordingly and identify positive supports to manage unusual symptoms that may occur. Progress: Continues to endorse +Ah, denies SI. She reports AH is minimizing. Patient appears to be gaining insight and judgement is improving.
[2016-04-27 19:50] VITALS: BP 109/72
--- NOTE | 2016-04-27 21:55 | NUR ---
PT IS VISIBLE ON UNIT, SOCIALIZING WITH PEERS AND STAFF. MOTHER VISITED THROUGHOUT THE EVENING. ATTENDED WRAP UP MEETING AND PARTICIPATED. NO COMPLAINTS OR SI REPORTED. PT HAS A STABLE MOOD AND FULL RANGE AFFECT.
--- NOTE | 2016-04-28 10:49 | CP SOUTH PROGRESS NOTE PSYCH ---
Psych (Inpt) Progress Note Progress Note Include the following elements, when applicable: Involvement in the active treatment of the patient with behavioral observations of the patient and the patient's response to the treatment. Review of the ongoing treatment process in the context of the treatment plan. Indication of how multi-disciplinary staff members are carrying out the treatment plan. Plans for future interventions and recommendations for revision of the treatment plan. Liaison with other physicians/providers. Progress Note: [I discussed this patient's progress to date, current mental status, treatment process in the context of the treatment plan, and discharge planning with staff/ team in the daily morning inpatient team meeting. I also met with the patient myself in individual session.] SUBJECTIVE: "I'm doing good." OBJECTIVE: Current Medications Sig/Roseline Start time Last Medication Dose Route Stop Time Status Admin Acetaminophen 650 MG Q6P PRN 04/14 1515 AC 04/19 PO 1251 Al Hydroxide/Mg 30 ML Q4-6 PRN PRN 04/14 1515 AC Hydroxide PO Benztropine Mesylate 1 MG BID 04/14 1513 AC 04/28 PO 1222 Gabapentin 300 MG Q6P PRN 04/14 1530 AC PO [place] Carbonate 600 MG 04/21 2200 AC 04/27 PO 2207 [place] Carbonate 300 MG DAILY@04/21 0800 AC 04/28 PO 1221 Magnesium Hydroxide 30 ML AT BEDTIME PRN 04/14 1515 AC PO Melatonin 5 MG 04/21 2200 AC 04/27 PO 2208 Nicotine 14 MG 799 04/ 0800 AC 04/28 TOP 1221 Nicotine 2 MG Q2P PRN 04/14 1515 AC 04/24 PO 1511 Risperidone 3 MG 04/28 0800 AC 04/28 PO 1221 Risperidone 2 MG 04/24 0800 DC 04/27 PO 1249 Risperidone 3 MG 04/23 2200 AC 04/27 PO 2208 Trazodone HCl 50 MG AT BEDTIME 04/18 2199 AC 04/27 PO 2207 Vital Signs Date Time Temp Pulse Resp B/P Pulse O2 O2 Flow FiO2 Ox Delivery Rate 04/28 1217 88 92/70 04/27 1950 98.0 83 109/72 04/27 1555 86 102/65 04/27 1244 88 103/62 ASSESSMENT: Met with patient for individual session in office. Patient presented A&Ox4. Energy good. Mood "good." Affect mostly constricted. Eye contact was appropriate. Speech was normal in rate, tone and volume. Reported continued crocheting, which she described distracts her from AH. Reported "quieter" AH today. Reported hearing approx 10 voices. Voices continue to "chatter." She denied AH to be command in nature. She reported sleeping "more." She did not elaborate further on statement. However, patient reported going to bed around 12am this morning. Educated patient on sleep hygiene. Reinforced importance of waking up in the morning, so that she can fall asleep at night. Patient reported anxiety of 0/10 (10 being the worst) and depression of 5/10 (10 being the worst). Unable to identify tirggers of depression today. She denied active and passive suicidal ideation, plans and intent. She denied homicidal ideation. She denied visual hallucinations. Thought process appeared somewhat improved, linear and more organized. Thought content mostly approrpiate. Patient reported tolerating medications well and denied untoward medication effects. AIMS=0. Pt remains agreeable to continue taking medications. PLAN: 1. Continue monitoring the patient on unit for safety, psychosis and mood. 2. Continue current medications. 3. Continue awaiting state bed availability.
[2016-04-28 12:17] VITALS: BP 92/70
--- NOTE | 2016-04-28 13:58 | NUR ---
PT WAS A LATE RISER. SHE DID NOT ATTEND THE FIRST GROUP BUT WAS IN THE SECOND AND THE THIRD. UPON AWAKENING, SHE WAS SOCIAL WITH STAFF AND PEERS. THE PATIENT DENIES SUICIDAL IDEATION. SHE DID NOT EAT BREAKFAST BUT DID EAT LUNCH. SHE HAD NO PRNs.
--- NOTE | 2016-04-28 14:22 | SOCIAL WORKER PROG NOTE PSYCH ---
Social Work Progress Note Progress Note Pt was oriented and showing a louis range then previous encounters. She was discussing a tv show that she really enjoys. She stated she is hoping in a week or two, she can be considered for discharge home as opposed to waiting for bed availability, she reports this would make her very happy. She states she will continue to go to groups and engage in inpatient milieu. Pt feels good and denies ah/vh/si/hi.
[2016-04-28 16:08] VITALS: BP 110/68
[2016-04-28 19:38] VITALS: BP 112/53
--- NOTE | 2016-04-28 22:46 | NUR ---
PT IS VISIBLE ON UNIT, SOCIALIZING WITH PEERS AND STAFF. PLEASANT AND COOPERATIVE. ATTENDED WRAP UP MEETING AND PARTICIPATED. NO COMPLAINTS OR SI REPORTED. PT HAS A STABLE MOOD AND FULL RANGE AFFECT.
--- NOTE | 2016-04-29 10:52 | SOCIAL WORKER PROG NOTE PSYCH ---
Social Work Progress Note Progress Note Met with patient this AM in her room after having to wake her up due to sleeping late during group time. Patient reported feeling tired and not motivated to go to groups today. Patient encouraged to get up from bed and go to the remainder of the groups for the day. Patient reported that she did not like focus group which she attended the other day, therefore she is not going again. Patient continues to resist doing things she does not want to do and I discussed this today with her and how this type of attitude attributed to her admission to this hospital and part of the reason why we are referring her to [facility]. We reviewed patients behaviors prior to admission and the fact that she did not attend IOP groups which resulted in her then missing her med appointment and then being unable to receive prescription for meds. Patient had minimal response and not engaged. Patient encouraged to get out of bed, wash up, and spend the remainder of the day in the community.
[2016-04-29 12:27] VITALS: BP 108/53
--- NOTE | 2016-04-29 14:53 | NUR ---
PT IS STABLE WITH FULL RANGE OF AFFECT. PRESENT WITHIN THE COMMUNITY AND INTERACTING WITH STAFF/PEERS. [T IS PLESANT AND COMPLIANT WITH STAFF AND OTHER THERAPIES. PT DID NOT LEAVE BED UNTIL APPROXIMATELY 1100 THIS MORNING. PT DID ATTEND GROUPS LATER ON IN THE DAY. VS ARE STABLE AND DENIES ANY SI/HI TO THIS [facility].
--- NOTE | 2016-04-29 15:33 | CP SOUTH PROGRESS NOTE PSYCH ---
Psych (Inpt) Progress Note Progress Note Include the following elements, when applicable: Involvement in the active treatment of the patient with behavioral observations of the patient and the patient's response to the treatment. Review of the ongoing treatment process in the context of the treatment plan. Indication of how multi-disciplinary staff members are carrying out the treatment plan. Plans for future interventions and recommendations for revision of the treatment plan. Liaison with other physicians/providers. Progress Note: [I discussed this patient's progress to date, current mental status, treatment process in the context of the treatment plan, and discharge planning with staff/ team in the daily morning inpatient team meeting. I also met with the patient myself in individual session.] SUBJECTIVE: "I just got into a fight with my mom." OBJECTIVE: Current Medications Sig/Roseline Start time Last Medication Dose Route Stop Time Status Admin Acetaminophen 650 MG Q6P PRN 04/14 1515 AC 04/19 PO 1251 Al Hydroxide/Mg 30 ML Q4-6 PRN PRN 04/14 1515 AC Hydroxide PO Benztropine Mesylate 1 MG BID 04/14 1513 AC 04/29 PO 1222 Gabapentin 300 MG Q6P PRN 04/14 1530 AC PO [place] Carbonate 600 MG 04/21 2200 AC 04/28 PO 2244 [place] Carbonate 300 MG DAILY@04/21 08 AC 04/29 PO 1221 Magnesium Hydroxide 30 ML AT BEDTIME PRN 04/14 1515 AC PO Melatonin 5 MG 04/21 2200 AC 04/28 PO 2245 Nicotine 14 MG 04/16 0800 AC 04/29 TOP 1221 Nicotine 2 MG Q2P PRN 04/14 1515 AC 04/24 PO 1511 Risperidone 3 MG 04/28 0800 AC 04/29 PO 1221 Risperidone 3 MG 04/23 2200 AC 04/28 PO 2244 Trazodone HCl 50 MG AT BEDTIME 04/18 2200 AC 04/28 PO 2244 Vital Signs Date Time Temp Pulse Resp B/P Pulse O2 O2 Flow FiO2 Ox Delivery Rate 04/29 1227 83 108/53 04/28 1938 96.9 97 112/53 04/28 1608 78 110/68 ASSESSMENT: Met with patient in room, today. She was alert and oriented x 4. Speech was normal in rate, tone and volume. Eye contact was appropriate. Mood was "fine." Affect was mostly constricted. She reported just getting off the phone with her mother after having an argument. Patient reported source of argument was related to information her mother shared with primary team during family meetings that she was paranoid and believed people were out to get her at home. Patient reported feeling that this factor was the reason for why she remains in hospital. Reviewed with patient symptoms that led to her being hospitalized, including unsafe/risky behaviors, nonadherence to IOP treatment, nonadherence to medications, disorganized thought process, AVH, and poor insight into psychiatric disorder. Patient was able to engage in conversation, without exhibiting anger or resistance. She reported coping well after argument with mother, by taking space in her room and processing with this chief underwriter. She intially reported experiencing anxiety in the context of argument with mother, but reported this subsided after processing event. She denied depression. Reported appetite was good. Reported fair sleep, but attributed this to staying up until 1AM to talk with her roomate who was venting to her. Reviewed with patient the importance of sleep hygiene, settling to bed at an appropriate time, so that she could wake up in the morning feeling resting. Patient continued to report AH of 10 voices. Reported these voices ask her "why are you going to group?," "what is group helping with?." She denied hearing voices at present. She denied AH tell her to harm herself or others. She denied VH. She denied active and passive suicidal ideation, plans and intent. She denied homicidal ideation. No evidence of paranoia or deulsions. Thought process linear. Thought content appropriate. Insight and judgment appear somewhat improved, and patient continues to attend milieu groups. Patient reported tolerating medications well, and denied untoward medications effects. AIMS=0. No evidence of movement disorder. PLAN: 1. Continue monitoring patient on unit for safety, mood and psychosis. 2. Continue current meds. 3. Await state bed availability.
[2016-04-29 15:57] VITALS: BP 102/59
[2016-04-29 20:17] VITALS: BP 132/68
--- NOTE | 2016-04-29 23:13 | NUR ---
PT IS CALM, COOPERATIVE WITH STAFF AND PEERS, AND COMPLIANT WITH UNIT RULES. PT ENJOYED A VISIT FROM MOTHER DURING VISITING HOURS ON SHIFT. PT MOOD IS STABLE, AFFECT IS BRIGHT BUT ALSO EXPRESSES A FULL RANGE AFFECT. PT COMMUNICATION IS NORMAL AND APPETITE IS NORMAL WELL. PT DENIES SI A THIS TIME.
--- NOTE | 2016-04-30 04:14 | NUR ---
Patient slept well, no issues.
[2016-04-30 12:05] VITALS: BP 123/47
--- NOTE | 2016-04-30 13:41 | NUR ---
PT IS COMPLIANT AND COOPERATIVE. MOOD IS STABLE WITH A FULL RANGE OF AFFECT. PT DENIES SI AT THIS TIME, NO COMPLAINTS OFFERED. PT WAS ISOLATIVE AND SLEEPING IN BED UNTIL ABOUT 1200. PT PRESENT ON UNIT AFTER LUNCH. PT IS INTERACTING WELL WITH PEERS AND STAFF. PT HAS ATTENDED ONE GROUP THUS FAR. PT REFUSED BREAKFAST, ATE LUNCH. VITALS ARE STABLE.
--- NOTE | 2016-04-30 14:10 | SOCIAL WORKER PROG NOTE PSYCH ---
Social Work Progress Note Progress Note Pt was feeling tired, and reports agitation at "little things", could not pinpoint anything specific pt just reported she thought she may need to speak with provider to increase "I need more lithium", pt otherwise states she is feeling alright and was very proud that she learned how to adam. She showed me a scarf she made and states she is making another one for her grandmother. Pt aware of the track she is on for discharge planning.
--- NOTE | 2016-04-30 15:48 | CP SOUTH PROGRESS NOTE PSYCH ---
Psych (Inpt) Progress Note Progress Note Include the following elements, when applicable: Involvement in the active treatment of the patient with behavioral observations of the patient and the patient's response to the treatment. Review of the ongoing treatment process in the context of the treatment plan. Indication of how multi-disciplinary staff members are carrying out the treatment plan. Plans for future interventions and recommendations for revision of the treatment plan. Liaison with other physicians/providers. Progress Note: [I discussed this patient's progress to date, current mental status, treatment process in the context of the treatment plan, and discharge planning with staff/ team in the daily morning inpatient team meeting. I also met with the patient myself in individual session.] SUBJECTIVE: "I'm tired." OBJECTIVE: Current Medications Sig/Roseline Start time Last Medication Dose Route Stop Time Status Admin Acetaminophen 650 MG Q6P PRN 04/14 1515 AC 04/19 PO 1251 Al Hydroxide/Mg 30 ML Q4-6 PRN PRN 04/14 1515 AC Hydroxide PO Benztropine Mesylate 1 MG BID 04/14 1513 AC 04/30 PO 1218 Gabapentin 300 MG Q6P PRN 04/14 1530 AC 04/[address] [place] Carbonate 600 MG 04/21 2200 AC 04/[address] [place] Carbonate 300 MG DAILY@04/21 0800 AC 04/30 PO 1218 Magnesium Hydroxide 30 ML AT BEDTIME PRN 04/14 1515 AC PO Melatonin 5 MG 04/21 2200 AC 04/29 PO 2203 Nicotine 14 MG 04/16 08 AC 04/30 TOP 1218 Nicotine 2 MG Q2P PRN 04/14 1515 AC 04/24 PO 1511 Risperidone 3 MG 04/28 0800 AC 04/30 PO 1218 Risperidone 3 MG 04/23 2200 AC 04/29 PO 2203 Trazodone HCl 50 MG AT BEDTIME 04/18 2200 AC 04/29 PO 2204 Vital Signs Date Time Temp Pulse Resp B/P Pulse O2 O2 Flow FiO2 Ox Delivery Rate 04/30 1205 95 123/47 04/29 2016 96.9 80 132/68 04/29 1557 75 102/59 ASSESSMENT: Approached patient who was observed resting in bed at 15:30. Patient met with promotion writer in office. Pt Ox4. Speech was normal in rate, tone, and volume. Eye contact appropriate. Affect constricted. Mood: "tired." Reported settling to bed around 12AM secondary to talking to roommate. Reviewed with patient the consequences of staying up late, such as waking up late, feeling unrested, and missing milieu groups. Reviewed sleep hygeine again with patient. She reported having a positive phone conversation with her mother today. Reported they made up from argument yesterday. She reported "quieter" AH. Continued hearing approx 10 voices of "chatter." Denied voices being command in nature, or telling her to harm herself or others. She denied feeling hopeless, helpless, worthless, guilty. Depression: 4/10 (10 being the worst), Anxiety: 4/ 10 (10 being the worst). She denied suicidal ideation, plans and intent. Denied homicidal ideation. Denied visual hallucinations. Reported appetite was good. No evidence of paranoia or delusions. Patient did not appear internally preoccupied. Insight and judgement slowly improving. Patient reported tolerating medications well and denied untoward medication effects. No evidence of movement disorder, cogwheeling, or tremor. Patient agreeable to continue taking medications. PLAN: 1. Continue monitoring the patient on unit for safety, mood and psychosis. 2. Continue current medications. 3. Continue to await [facility] bed availability.
[2016-04-30 16:09] VITALS: BP 102/54
[2016-04-30 19:30] VITALS: BP 111/61
--- NOTE | 2016-04-30 22:14 | NUR ---
PT IS STABLE WITH FULL RANGE OF AFFECT. PT REMAINS CHILD-LIKE IN COMMUNICATION. APPROPRIATE TO THE UNIT AND PLEASANT WHEN ENGAGING. PT WAS CONCERNED WITH HER NOSE RING THIS EVENING SHIFT. CURRENTLY IN THE KITCHEN INTERACTING WITH PEERS. PT DID ATTEND WRAP UP GROUP. VS ARE STABLE AND DENIES ANY SI/HI.
--- NOTE | 2016-04-30 22:16 | NUR ---
PT IS CALM, COOPERATIVE WITH STAFF AND PEERS, AND COMPLINAT WITH UNIT RULES. PT RECEIVED A VISIT FROM MOTHER DURING SHIFT. PT HAS BEEN IN [place], SOCIALIZING WITH PEERS. MOOD IS STABLE, AFFECT IS ON THE BRIGHTER SIDE OF FULL RANGE, COMMUNICATION IS NORMAL, AND APPETITE IS NORMAL. PT DENIES SI AT THIS TIME.
[2016-05-01 12:44] VITALS: BP 98/53
--- NOTE | 2016-05-01 14:19 | CP SOUTH PROGRESS NOTE PSYCH ---
Psych (Inpt) Progress Note Progress Note Include the following elements, when applicable: Involvement in the active treatment of the patient with behavioral observations of the patient and the patient's response to the treatment. Review of the ongoing treatment process in the context of the treatment plan. Indication of how multi-disciplinary staff members are carrying out the treatment plan. Plans for future interventions and recommendations for revision of the treatment plan. Liaison with other physicians/providers. Progress Note: [I discussed this patient's progress to date, current mental status, treatment process in the context of the treatment plan, and discharge planning with staff/ team in the daily morning inpatient team meeting. I also met with the patient myself in individual session.] SUBJECTIVE: "I'm fine, just tired." OBJECTIVE: Current Medications Sig/Roseline Start time Last Medication Dose Route Stop Time Status Admin Acetaminophen 650 MG Q6P PRN 04/14 1515 AC 04/19 PO 1251 Al Hydroxide/Mg 30 ML Q4-6 PRN PRN 04/14 1515 AC Hydroxide PO Benztropine Mesylate 1 MG 799,05/01 2100 AC PO Benztropine Mesylate 1 MG BID 04/14 1513 DC 05/01 PO 1145 Gabapentin 300 MG Q6P PRN 04/14 1530 AC 04/29 PO 1713 [place] Carbonate 600 MG 04/21 AC 04/30 PO 2241 [place] Carbonate 300 MG DAILY@04/21 08 AC 05/01 PO 1145 Magnesium Hydroxide 30 ML AT BEDTIME PRN 04/14 1515 AC PO Melatonin 5 MG 05/01 AC PO Melatonin 5 MG 04/21 DC 04/30 PO 2241 Nicotine 14 MG 04/16 AC 05/01 TOP 1144 Nicotine 2 MG Q2P PRN 04/14 1515 AC 04/24 PO 1511 Risperidone 3 MG 05/01 2100 AC PO Risperidone 3 MG 04/28 AC 05/01 PO 1145 Risperidone 3 MG 04/23 DC 04/30 PO 2241 Trazodone HCl 50 MG AT BEDTIME 04/18 2199 AC 04/30 PO 2241 Vital Signs Date Time Temp Pulse Resp B/P Pulse O2 O2 Flow FiO2 Ox Delivery Rate 05/01 1244 93 98/53 04/30 1930 96.5 92 111/61 04/30 1609 96 102/54 ASSESSMENT: On encounter today, patient presented A&Ox4. Reported mood as "fine, just tired. " Patient reported falling asleep at 12am this morning, d/t talking with roommate. She reported that if she received her medications earlier then she would fall asleep earlier. Reviewed with patient that times of HS medications can be adjusted to an earlier time. She denied feeling oversedated on current medication regimen. She reported anxiety and depression of 5/10 (10 being the worst). Reported these scores would be lower if she slept better. She reported AH of approximately 10 voices, "they're faint, alot quieter." She reported they're loudest upon awakening in the morning and right before settling to bed. She reported AH of "mindless chatter." Denied voices to be command in nature, or that they tell her to harm herself or others. She denied visual hallucinations. She denied active/ passive suicidal ideation, plans and intent. She denied homicidal ideation. There was no evidence of paranoia or delusions. Thought process was linear. Thought content was appropirate. Insight and judgement appear to be improving. Patient reported tolerating medications well, and denied untoward medication effects. No evidence of movement disorder. AIMS = 0. PLAN: 1. Continue current med regimen. Rescheduled HS meds to 9PM. 2. Continue monitoring the patient on unit for safety. 3. Await bed availability at [facility]. If patient's condition continues to improve, will consider referral to [facility] level of care.
--- NOTE | 2016-05-01 14:22 | NUR ---
PT IS COMPLIANT AND COOPERATIVE. MOOD IS STABLE WITH A FULL RANGE OF AFFECT. PT DENIES SI AT THIS TIME, NO COMPLAINTS OFFERED. PT SLEPT UNTIL ABOUT 1200, PRESENT IN COMMUNITY SINCE. PT REFUSED BREAKFAST AND 0800 VITALS. PT IS INTERACTING WITH PEERS AND STAFF. PT HAS ATTENDING ONE GROUP SO FAR. NO AH/VH REPORTED. VITALS ARE STABLE, APPETITE IS GOOD.
[2016-05-01 16:25] VITALS: BP 119/63
--- NOTE | 2016-05-01 16:25 | SOCIAL WORKER PROG NOTE PSYCH ---
Social Work Progress Note Progress Note Patient continues to show improvement and offers little to no complaints at present. Patient attending groups on the unit mainly in the afternoon and social with peers. She denies any thoughts to hurt herself and still eager to discharge home. Patient is aware that she remains on the list for [facility] at this time. If patient continues to show improvement we may consider discharge to [facility] if bed does not become available at [facility] within certain time frame. Patient will need to agree to IOP with family support if that ends up being end result. Patient encouraged to continue to comply with treatment and work on sleeping less.
[2016-05-01 19:40] VITALS: BP 112/62
--- NOTE | 2016-05-01 22:17 | NUR ---
Pt is out in the community mood is stable affect is in full range, Compliant and cooperative with the staff. Vital signs are stable c/o no pain, pt appetite is good. Will continue to monitor the pt overnight.
[2016-05-02 12:16] VITALS: BP 96/61
--- NOTE | 2016-05-02 13:31 | NUR ---
PT HAS BEEN VISIBLE IN THE [place] FOR PART OF THE DAY. SHE DID NOT WAKE UP UNTIL CLOSE TO NOON. SHE DID NOT PARTICIPATE IN PLANNING MEETING AND FOCUS GROUP, BUT DID DO AFTERNOON VITAL SIGNS. PT VERBALLY REFUSED HER MORNING VITAL SIGNS TO THIS M[facility]. IN THE [place], PT HAD LUNCH AND HAS BEEN INTERACTING WITH HER PEERS. PT DENIES THOUGHTS OF SUICIDE, AND SELF HARM.
--- NOTE | 2016-05-02 13:42 | NUR ---
DESPITE MULTIPLE ATTEMPTS TO WAKE PATIENT FOR MORNING MEDS PATIENT REMAINED IN BED. WHEN ASKED HOW SHE WOULD MANAGE MEDS AFTER DISCHARGE SHE STATED SHE DID NOT KNOW. wHEN IT WAS BROUGHT TO HER ATTENTION THAT SHE WAS SLEEPING 12+HRS A DAY SHE STATED IT WAS DUE TO DEPRESSSION.
--- NOTE | 2016-05-02 13:50 | CP SOUTH PROGRESS NOTE PSYCH ---
Psych (Inpt) Progress Note Progress Note Include the following elements, when applicable: Involvement in the active treatment of the patient with behavioral observations of the patient and the patient's response to the treatment. Review of the ongoing treatment process in the context of the treatment plan. Indication of how multi-disciplinary staff members are carrying out the treatment plan. Plans for future interventions and recommendations for revision of the treatment plan. Liaison with other physicians/providers. Progress Note: Notes reviewed, discussed patient progress with nursing staff, interviewed patient this morning. Despite multiple attempts, the patient would not engage in an interview with me this morning. She remained in her bed essentially all morning, would stir when I called her name and look up but then would immediately go back to sleep. My discussion with nursing staff reveals no acute concern regarding this behavior. MSE: Adequately groomed, well appearing female resting in bed. Entirely uncooperative with interview. No abnormal movements noted. Unable to ascertain remainder of mental status exam. Vitals reviewed and essentially within normal limits with mild hypotension and mild tachycardia. Lab results reviewed with no new laboratory results today. A/P: Continue present management as per primary team.
[2016-05-02 15:48] VITALS: BP 110/65
[2016-05-02 20:01] VITALS: BP 122/67
--- NOTE | 2016-05-02 23:30 | NUR ---
PATIENT PLEASANT, ALERT AND ORIENTED X3; STILL HYPERACTIVE AT TIMES; HAD TO BE REDIRECTED ONCE WHEN A SHE WAS WALKING DOWN THE HALLWAY WITH A MALE PEER WHO HAD HIS ARM AROUND HER SHOULDERS; SHE ATTENDED WRAP UP MEETING AND IS INTERACTING WELL WITH PEERS AND STAFF; SHE DENIES S/I, H/I AT THIS TIME, AND CONTINUES TO DENY ANY DISTRESS WHEN AUDITORY HALLUCINATIONS ARE PRESENT.
--- NOTE | 2016-05-03 05:51 | NUR ---
PATIENT SLEPT ALL NIGHT.
--- NOTE | 2016-05-03 10:40 | CP SOUTH PROGRESS NOTE PSYCH ---
Psych (Inpt) Progress Note Progress Note Include the following elements, when applicable: Involvement in the active treatment of the patient with behavioral observations of the patient and the patient's response to the treatment. Review of the ongoing treatment process in the context of the treatment plan. Indication of how multi-disciplinary staff members are carrying out the treatment plan. Plans for future interventions and recommendations for revision of the treatment plan. Liaison with other physicians/providers. Progress Note: Notes reviewed, discussed patient progress with nursing staff, interviewed patient this morning. Literally had to shake the bed frame to get patient to acknowledge my existence. She was irritable that she was woken up to be interviewed despite it being midmorning. She denied any current complaints and return to sleep. MSE: Adequately groomed, well appearing female resting in bed. Entirely uncooperative with interview. No abnormal movements noted. Unable to ascertain remainder of mental status exam. Vitals reviewed and within normal limits. Lab results reviewed with no new results today. A/P: Continue present management as per primary team. Patient was informed that psychiatrist is available if she were to need later in the day.
[2016-05-03 10:42] VITALS: BP 124/71
[2016-05-03 11:54] VITALS: BP 107/63
--- NOTE | 2016-05-03 14:26 | NUR ---
WOKEN FROM DEEP SLEEP THIS MORNING DUE TO CONCERN BY ON-CALL PSYCHIATRIST TO HER LACK OF RESPONSE. IRRITABLE ON AWAKENING AND HAS BEEN OUT IN COMMUNITY SINCE. INTERACTIING WITH PEERS IN COMMUNITY. DENIED THOUGHTS OF SELF HARM WHEN ASKED.
[2016-05-03 15:40] VITALS: BP 119/60
[2016-05-03 19:50] VITALS: BP 113/71
--- NOTE | 2016-05-03 20:01 | NUR ---
PT. OUT IN COMMUNITY PLAYING GAMES WITH OTHERS VSS NO ISSUES. VISIT WITH MOM WENT WELL. NO ISSUES NOTED.
[2016-05-04 12:15] VITALS: BP 105/61
--- NOTE | 2016-05-04 14:01 | NUR ---
PT IS COMPLIANT AND COOPERATIVE. MOOD IS STABLE WITH A FULL RANGE OF AFFECT. PT DENIES SI AT THIS TIME, NO COMPLAINTS OFFERED. NO REPORTS OF AH, NO SIGNS OF ACTIVE PSYCHOSIS. PT WAS WITHDRAWN AND SLEEPING UNTIL ABOUT 1130- PRESENT ON THE UNIT SINCE. PT IS INTERACTING WELL WITH PEERS AND STAFF. PT IS ATTENDING MOST GROUPS. PT REFUSED 0800 VITALS AND BREAKFAST. 1200 VITALS WNL, ATE ALL OF LUNCH.
[2016-05-04 16:13] VITALS: BP 118/71
--- NOTE | 2016-05-04 16:30 | CP SOUTH PROGRESS NOTE PSYCH ---
Psych (Inpt) Progress Note Progress Note Include the following elements, when applicable: Involvement in the active treatment of the patient with behavioral observations of the patient and the patient's response to the treatment. Review of the ongoing treatment process in the context of the treatment plan. Indication of how multi-disciplinary staff members are carrying out the treatment plan. Plans for future interventions and recommendations for revision of the treatment plan. Liaison with other physicians/providers. Progress Note: [I discussed this patient's progress to date, current mental status, treatment process in the context of the treatment plan, and discharge planning with staff/ team in the daily morning inpatient team meeting. I also met with the patient myself in individual session.] SUBJECTIVE: "I'm fine." OBJECTIVE: Current Medications Sig/Roseline Start time Last Medication Dose Route Stop Time Status Admin Acetaminophen 650 MG Q6P PRN 04/14 1515 AC 04/19 PO 1251 [place] Hydroxide/Mg 30 ML Q4-6 PRN PRN 04/14 1515 AC Hydroxide PO Benztropine Mesylate 1 MG 799,05/01 2100 05/04 PO 1137 Gabapentin 300 MG Q6P PRN 04/14 1530 AC 04/29 PO 1713 [place] Carbonate 600 MG 04/21 2200 AC 05/03 PO 2202 [place] Carbonate 300 MG DAILY@04/21 0805/04 PO 1137 [place] Hydroxide 30 ML AT BEDTIME PRN 04/14 1515 AC PO Melatonin 5 MG 05/01 AC 05/03 PO 2202 Nicotine 14 MG 04/16 0805/04 TOP 1137 Nicotine 2 MG Q2P PRN 04/14 1515 AC 05/02 PO 1829 Risperidone 3 MG 05/01 PO 2201 Risperidone 3 MG 04/28 0800 AC 05/04 PO 1137 Trazodone HCl 50 MG AT BEDTIME 04/18 2200 05/03 PO 2201 Vital Signs Date Time Temp Pulse Resp B/P Pulse O2 O2 Flow FiO2 Ox Delivery Rate 05/04 1613 88 118/71 05/04 1215 92 105/61 05/03 1950 97.2 91 113/71 ASSESSMENT: Met with the patient today, together with Nayana Garcia LCSW, and the patient's parents in a family meeting. Patient's treatment progress to date, medication regimen, level of safety, and discharge planning were reviewed and discussed. Reviewed with the patient and her parents' that patient's psychiatric symptoms have significantly stabilized despite continued AH, which are of much less severity to when patient was initially hospitalized on [facility]. Discharge recommendation was made for patient to be discharged with f/u aftercare at [facility]. Please see Nayana Garcia LCSW note from today for details regarding family meeting. On encounter, patient was A&Ox3. Affect was constricted and calm. She denied depression and anxiety. She denied feeling hopeless, helpless, or worthless. Speech was normal in rate, tone and volume. Eye contact was appropriate. She reported her sleep and appetite were good. Energy level was good. She reported "quieter" AH of "chatter." She reported AH of approx. 10 voices. She denied AH to be command in nature, or telling her to harm herself or others. She denied VH. She denied active and passive suicidal ideation, plans and intent. She denied homicidal ideation. Thought process was linear and organized. Thought content was appropriate. There was no evidence of paranoia or of rebecca delusions. Patient reported tolerating all medications well and denied untoward medication effects. AIMS=0. Patient continued to refuse switch from Risperdal po formulation to DUEÑAS formulation at this time. PLAN: 1. Discharge tomorrow into the care of family and home. 2. F/u with [facility] intake tomorrow at 12:45PM. 3. Continue monitoring the patient on unit for safety, mood and psychosis. 4. Continue current medications. Repeat Li level tomorrow morning at 0600.
--- NOTE | 2016-05-04 16:39 | SOCIAL WORKER PROG NOTE PSYCH ---
Social Work Progress Note Progress Note Had family meeting today with patient, her parents and Daksha Davis APRN. We discussed the plan to tentatively discharge patient home tomorrow. Patients parents initially expressed some concerns/fears of patient returning home and returning to old behaviors. Patient has agreed to return to [facility] from the hospital and has been referred to the dual evening track to address her history of marijuana and alcohol abuse. Patient in denial about substance abuse and became somewhat defensive when we told her this was our recommendation. She did agree to attend and will attend intake tomorrow at 12:45pm. She is aware that there will be random drug testing and if patient does not comply with medication that she may be referred back to the hospital with recommendation to [facility]. Patient has also agreed to allow her mother to distribute her medication to her daily in replacement of VNS. Parents are on board with this plan as well.
[2016-05-04 19:51] VITALS: BP 103/57
--- NOTE | 2016-05-04 22:34 | NUR ---
PT IS CALM, COOPERATIVE WITH STAFF AND PEERS, AND COMPLIANT WITH UNIT RULES. PT RECIEVED VISIT FROM MOTHER DURING SHIFT. MOOD IS STABLE, AFFECT IS FULL RNAGE, COMMUNICATION IS NORMAL, AND APPETITE IS NORMAL. PT DENIES SI AT THIS TIME.
--- NOTE | 2016-05-05 06:13 | NUR ---
PATIENT SLEPT ALL NIGHT.
--- NOTE | 2016-05-05 10:09 | SOCIAL WORKER PROG NOTE PSYCH ---
Social Work Progress Note Progress Note Patient to discharge home today. Patient denies SI/HI/VH at present and does continue to report mild AH that are not command in nature. Patient is looking forward to discharging today. Patients family is in the process of moving into patients grandmothers house in [place], [place]. 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 Patient has agreed to start IOP with and has intake today at 12:45pm. Patient has been recommended to dual track to monitor both mental health and substance abuse. Patients mother will be distributing patients medications to her daily in replacement of VNS. Patient and her family are aware that if patient is to re-present to ED and be re- admitted to [facility], the recommendation upon next admission will be referral to [facility].
--- NOTE | 2016-05-05 10:32 | DISCHARGE SUMMARY REPORT-PSYCH ---
See Addendum Visit Information Visit Dates/Diagnosis' Admission Date: 04/14/16 Discharge Date: 05/05/16 Reason for Admission: Suicidal ideation and psychosis Psy Discharge Primary Diag: Unspecified psychosis (F29) ) Psy Discharge Secondary Diag: R/O Bipolar disorder with psychotic features; history of alcohol use disorder; history of cannabis use disorder Hospital Course Significant Lab Findings: Lab [place] 0.4 mmol/L L 04/18/16 0615 [place] 0.6 mmol/L 04/21/16 0614 [place] 0.8 mmol/L 04/24/16 0646 [place] 0.7 mmol/L 05/05/16 0938 Urine Test NEGATIVE 04/13/16 1927 04/14/16 EKG: Sinus rhythm, rate of 65. LZ=059; CZf=202. Course Complications: None. Consultations: The patient was seen for admission history and physical by Dr. Noemy Rosario. Please see her note for additional information. Allergies: Coded Allergies: No Known Allergies (11/22/15) Hospital Course/TX Response: The patient was monitored on the unit for safety, suicidal ideation, and auditory hallucinations. She participated in multimodal treatments on the unit. Prior to this hospitalization, the patient had been nonadherent with psychotropic medication for an undetermined length of time. She was initially restarted on [place] 600mg BID, Risperdal 2mg BID and Cogentin 1mg BID on admission. Patient became hypotensive, possibly due to reinitiation of moderate dose psychotropics which she had been nonadherent to. Medications were adjusted at that time to [place] 300mg BID for mood stabilization and Risperdal 1mg QAM and 2mg QPM for auditory hallucinations. [place] was gradually titrated up to 300mg QAM and 600mg QPM for mood stabilization and Risperdal 3mg BID for auditory hallucinations. Cogentin 1mg BID was maintained. Melatonin 5mg at HS and Trazodone 50mg at HS were added for insomnia. Patient tolerated all medications well and denied untoward effects. During the hospital course, the patient's mood and affect improved. Suicidal ideation remitted, and auditory hallucinations decreased in intensity. The patient's auditory hallucinations did not remit. However, over the hospital course with uptitration of Risperdal, the patient reported that auditory hallucinations became quieter and less intense. Auditory hallucinations were not command in nature, nor did auditory hallucinations tell the patient to harm herself or others, per the patient's report. She developed methods of coping with AH, including watching television, crocheting, and listening to music with good effect. During the hospital course, a series of three family meetings were held with the patient, her mother and step-father, Nayana Garcia LCSW and this feature writer. Over the course of these three family meetings, the patient's psychiatric symptoms appeared to stabilize back to her baseline, her judgement and insight appeared improved, and the patient's mother and step-father noticed an improvement in her overall psychiatric condition. The patient's mother, step- father, and the patient were agreeable for the patient to follow-up with Dual [facility] level of care post-discharge. The patient and her mother were additionally in favor of the patient's mother administering the patient's medications post- discharge. The patient, her mother and step-father were in favor of discharge after care plan. On the date of discharge, 05/05/16, the patient presented A&Ox4. Speech was normal in rate, tone and volume. Eye contact was appropriate. She had no complaints. She reported her mood as "good." She reported 0/10 depression (10 being the worst) and 0/10 anxiety (10 being the worst). She denied feeling hopeless, helpless, worthless and guilty. She denied visual hallucinations. She continued to report AH of approx 10 voices of "chatter". She reported AH to be of less intensity, and quieter since initial admission to [facility]. She denied AH to be command in nature, and denied that these voices told her to harm herself or others. She denied AH was distressing to her, and verbalized using coping skills such as watching TV, listening to music and crocheting to distract her from these. She denied passive and active suicidal ideation, plans and intent. She denied homicidal ideation. She reported protective factors of "my parents" and "my grandma." She stated and also believed she will not harm herself or others. Thought process was organized and linear. Thought content was appropriate. There was no evidence of paranoia or rebecca delusions. She reported her sleep and appetite were good. She reported tolerating all medications well and denied untoward medication effects. AIMS=0. She reported feeling safe and ready for discharge. Discharge HBIPS - Tobacco Use Treatment Offered Post DC Medications Offered: Script Given-See Med List Post DC Tobacco Treatment Plan: [facility] Tobacco Tx Pgm - EtOH/Drug Use D/O Treatment Offered Post DC Medications Offered: Med Not Indicated for D/O Post DC EtOH/SubAbuse TX Plan: [facility] SubAbuse/Dual IOP Program Appt Date: 05/05/16 Program Appt Time: 1245 Metabolic Screening - Screen if on a Neuroleptic Medication - Metabolic screening should include: - Blood Pressure, BMI, Glucose or Hgb A1c, & a - Lipid profile from within the past 365 days. Metabolic Screening () Not Applicable, patient not on a neuroleptic. OR ([X]) Patient on a neuroleptic(s) . Enter below results for Glucose or Hemoglobin A1C, and lipid panel if obtained during the last 365 days. BMI: 22.200 Blood Pressure: 103/57 Laboratory Results (If applicable): Lab Cholesterol 135 MG/DL 04/13/16 192 Cholesterol/HDL Ratio 3 % 04/13/16 192 Glucose 106 mg/dL H 04/13/16 1925 HDL Cholesterol 47 mg/dL 04/13/16 192 LDL Cholesterol, Calc 74 mg/dL 04/13/16 192 Triglycerides 74 mg/dL 04/13/16 192 Discharge Instructions General Discharge Information Discharge Medications: Discharge Medications- (Dose, route, freq, indication): HOME MEDICATION LIST START taking these NEW Home Medications: Risperidone Dose: ORAL, TWICE DAILY for Qty: 28 Printed (Risperdal) 3 MG 3 Milligram clear Refills: 0 TABLET thoughts/hallucinations Take 1 tablet by mouth every morning and 1 tablet at every bedtime. [place] Carbonate Dose: ORAL, SEE INSTRUCTIONS Qty: 42 Printed ([place] Carbonate) 300 Milligram for mood stabilization Refills: 0 300 MG TABLET Take 1 tablet (300mg) by mouth every morning and 2 tablet (600mg) at bedtime. Benztropine Mesylate Dose: ORAL, 0800,2100 for Qty: 28 Printed (Benztropine 1 Milligram prevent EPS Refills: 0 Mesylate) 1 MG Take 1 tablet by mouth TABLET every morning and 1 tablet at bedtime. Melatonin Dose: ORAL, 2100 for insomnia Qty: 14 Printed (Melatonin) 5 MG 5 Milligram Take 1 tablet by mouth Refills: 0 TABLET at bedtime. Nicotine (Nicotine Dose: On the skin, DAILY @8 AM Qty: 14 Printed Patch) 14 MG/24 HOUR 14 Milligram for smoking cessation Refills: 0 PATCH.TD24 Apply 1 patch topically every morning and remove before bedtime. Trazodone HCl Dose: ORAL, AT BEDTIME for Qty: 14 Printed (Trazodone HCl) 50 50 Milligram insomnia Refills: 0 MG TABLET Take 1 tablet by mouth at bedtime. Printed prescriptions for all above discharge medications were provided to patient and reviewed with patient on 05/05/16. STOP taking these DISCONTINUED Home Medications: Risperidone (Risperidone) 2 MG Dose: ORAL, TWICE DAILY for MENTAL TABLET 1 Tablet HEALTH Reason Stopped: Per Doctor Decision Multiple Neuroleptics: [X]) Not Applicable OR Document below three failed attempts at monotherapy, or a plan to taper to monotherapy, or augmentation of Clozapine. () Patient's Diet: Regular Patient's Activity: No restrictions DC Disposition: Patient to return to home, and to mother and step-father. Recommendations: Patient was advised to please take medications. She was advised of the teratogenic effects of [place] and Risperdal, and was advised to use barrier methods during sexual activity. She was additionally advised to pursue oral contraception, given current medication regimen if she pursues sexual activity post-discharge. She was advised to abstain from all substances. She was advised to follow-up with [facility] in 05/06/16 at 4PM for assistance with smoking cessation. She was advised to follow-up with Dual [facility] intake on 05/05/16 at 12:45PM and continued treatment. She was advised that in the event of an emergency, to call [phone]/go to nearest emergency department. Patient verbalized understanding of all instructions. Referred To: [facility] IOP [address], [place] [id number] ([phone] *Intake appointment scheduled on 05/05/16 at 12:45PM. [facility] [address], [place] (t)[phone] *Walk-in to group on 05/06/16 at 4PM, bring appointment card. Copies To: Dual [facility]; [facility]
[2016-05-05] MEDS ORDERED: RISPERDAL3 M1 PO (10:45)
[2016-05-05] MEDS ORDERED: LITHIUM CARBON300 M5 PO (10:47)
[2016-05-05] MEDS ORDERED: BENZTROPINE MESY1 M1 PO (10:49)
[2016-05-05] MEDS ORDERED: MELATONIN5 M7 PO (10:49)
[2016-05-05] MEDS ORDERED: TRAZODONE HCL50 M1 PO (10:51)
[2016-05-05] MEDS ORDERED: NICOTINE PATCH1 EAC2 TOP (10:51)
--- NOTE | 2016-05-05 11:34 | CP SOUTH PROGRESS NOTE PSYCH ---
Psych (Inpt) Progress Note Progress Note Include the following elements, when applicable: Involvement in the active treatment of the patient with behavioral observations of the patient and the patient's response to the treatment. Review of the ongoing treatment process in the context of the treatment plan. Indication of how multi-disciplinary staff members are carrying out the treatment plan. Plans for future interventions and recommendations for revision of the treatment plan. Liaison with other physicians/providers. Progress Note: [I discussed this patient's progress to date, current mental status, treatment process in the context of the treatment plan, and discharge planning with staff/ team in the daily morning inpatient team meeting. I also met with the patient myself in individual session.] SUBJECTIVE: "I'm happy." OBJECTIVE: Current Medications Sig/Roseline Start time Last Medication Dose Route Stop Time Status Admin Acetaminophen 650 MG Q6P PRN 04/14 1515 AC 04/19 PO 1251 Al Hydroxide/Mg 30 ML Q4-6 PRN PRN 04/14 1515 AC Hydroxide PO Benztropine Mesylate 1 MG 799,05/01 PO 2149 Gabapentin 300 MG Q6P PRN 04/14 1530 AC 04/29 PO 1713 [place] Carbonate 600 MG 04/21 22005/04 PO 2149 [place] Carbonate 300 MG DAILY@04/21 08 05/04 PO 1137 Magnesium Hydroxide 30 ML AT BEDTIME PRN 04/14 1515 AC PO Melatonin 5 MG 05/01 PO 2149 Nicotine 14 MG 04/16 0805/04 TOP 1137 Nicotine 2 MG Q2P PRN 04/14 1515 AC 05/02 PO 1829 Risperidone 3 MG 05/01 PO 2149 Risperidone 3 MG 04/28 0800 05/04 PO 1137 Trazodone HCl 50 MG AT BEDTIME 04/18 220 05/04 PO 2149 Laboratory Tests 05/05/16 0938: [place] 0.7 Vital Signs Date Time Temp Pulse Resp B/P Pulse O2 O2 Flow FiO2 Ox Delivery Rate 05/04 1950 96.5 84 103/57 05/04 1613 88 118/71 05/04 1215 92 105/61 ASSESSMENT: Met with the patient today, on the date of discharge. Patient presented A&Ox4. Speech was normal in rate, tone and volume. Eye contact was appropriate. She had no complaints. She reported her mood as "good." She reported 0/10 depression (10 being the worst) and 0/10 anxiety (10 being the worst). She denied feeling hopeless, helpless, worthless and guilty. She denied visual hallucinations. She continued to report AH of approx 10 voices of "chatter". She reported AH to be of less intensity, and quieter since initial admission to [facility]. She denied AH to be command in nature, and denied that these voices tell her to harm herself or others. She denied AH was distressing to her, and verbalized using coping skills such as watching TV, listening to music and crocheting to distract her from these. She denied passive and active suicidal ideation, plans and intent. She denied homicidal ideation. She reported protective factors of "my parents" and "my grandma." She stated and also believed she will not harm herself or others. Thought process was organized and linear. Thought content was appropriate. There was no evidence of paranoia or rebecca delusions. She reported her sleep and appetite were good. She reported tolerating all medications well and denied untoward medication effects. She reported feeling safe and ready for discharge. PLAN: 1. Discharge today into the care of patient's mother. 2. F/u with Dual IOP today, at 12:45PM. 3. Abstain from all substances. 4. All discharge prescriptions were printed (per pt request), reviewed with patient and provided to patient. 5. [facility] information was provided to patient. Appointment card for group on 05/06/16 at 4PM provided to patient. Patient verbalized understanding of instruction. 6. In the event of an emergency, call [phone]/ go to nearest emergency department. Patient verbalized understanding of instructions.
--- NOTE | 2016-05-05 11:42 | NUR ---
05/05/16 1140 PT DC TODAY. PT DENIES SUICIDAL IDEATION. PT WAS GIVEN WRITTEN AND VERBAL INSTRUCTION REGARDING RESOURCES TO CONTACT IF SHE EXPERIENCES OVERWHELMING SUICIDAL THOUGHTS, DEPRESSION, OR ANXIETY. THE PATIENT DENIES AH, VH, OR HI. PT IS SLEEPING AND EATING WNL. THERE ARE NO PROBLEMS OF BOWEL OR BLADDER NOTED. SHE IS CONNECTED TO AFTERCARE POST HOSPITALIZATION. THE PT HAS BEEN MEDICATION COMPLIANT.
[2016-05-05 13:32] VITALS: BP 105/54
== END 2016-05-05 13:30 | DRG 751 ==
LOC: ERH 18:18 → CP SOUTH 04-14 15:02 → ERHI 04-14 15:02 → CP SOUTH 04-14 17:20
PROVIDERS: Emergency Medicine; ADMIT Psychiatry & Neurology Psychiatry
DX: F29 Unspecified psychosis not due to a substance or known physiological condition (principal); F10.10 Alcohol abuse, uncomplicated; F12.10 Cannabis abuse, uncomplicated
CPT/HCPCS: 36415; 80307; 81025; 93005; 93010; G0463; G0480

== ENCOUNTER 2017-10-26 20:23 | Inpatient (IN) | payer OTHER ==
[~2017-10-26] VITALS: Ht 177.8 cm; Wt 63.5 kg
[~2017-10-26 20:23] MED LIST changes: +BENZTROPINE ME0.5 M1 PO; +BENZTROPINE MESY1 M1 PO; +FLUPHENAZINE HCL5 M1 PO; +LITHIUM CARBON150 M1 PO; +LITHIUM CARBON300 M4 PO; +LITHIUM CARBON300 M5 PO; +MELATONIN5 M7 PO; +MIRTAZAPINE7.5 M1 PO; +NICOTINE PATCH1 EAC2 TOP; +RISPERDAL3 M1 PO; +RISPERIDONE2 M1 PO
--- NOTE | 2017-10-26 21:03 | ED GENERAL ADULT ---
History of Present Illness General Chief Complaint: Psychiatric Related Complaint Stated Complaint: BIBA AMS Source: patient, EMS Exam Limitations: no limitations Vital Signs & Intake/Output Vital Signs & Intake/Output Vital Signs Date Time Temp Pulse Resp B/P B/P Pulse O2 O2 Flow FiO2 Mean Ox Delivery Rate 10/29 1944 98.5 91 115/57 10/29 1625 86 92/50 10/29 1217 97.6 106 95/71 Allergies Coded Allergies: No Known Allergies (11/22/15) Reconcile Medications Benztropine Mesylate 0.5 MG TABLET 1 TAB PO QAM MENTAL HEALTH (Reported) Benztropine Mesylate 1 MG TABLET 1 TAB PO QPM MENTAL HEALTH (Reported) Fluphenazine HCl 5 MG TABLET 5 MG PO QAM MENTAL HEALTH (Reported) Fluphenazine HCl 5 MG TABLET 15 MG PO QPM MENTAL HEALTH (Reported) [place] Carbonate 300 MG CAPSULE 900 MG PO QPM MENTAL HEALTH (Reported) [place] Carbonate 150 MG CAPSULE 1 CAP PO QAM MENTAL HEALTH (Reported) Mirtazapine 7.5 MG TABLET 1 TAB PO QPM MENTAL HEALTH (Reported) Triage Note: PT BIBA ON PEER FROM HOME AFTER ARGUMENT W/MOTHER. EMS REPORTS THAT PT HAS BEEN NON-COMPLIANT WITH MEDICATIONS SINCE MAY AND MOTHER C/O INCREASINGLY ERRATIC BEHAVIOR. PT IS REPORTED TO HAVE BECOME VERBALLY ABUSIVE AND PHYSICALLY AGGRESSIVE TODAY PROMPTINT THE 911 CALL. EMS REPORTS VISUAL HALLUCINATION EN ROUTE. PT ARRIVES A&O, CALM AND COOPERATIVE WITH INTAKE PROCESS Triage Nurses Notes Reviewed? yes Onset: Gradual Duration: week(s): Timing: constant : No Patient currently breastfeeds: No HPI: 22-year-old female with a history of schizophrenia, bipolar disorder, anxiety presenting status post a verbal altercation with her mother just prior to arrival. Patient reports that she has been off of her psychiatric medications for the past 7 months. Per EMS patient's mother reported she has had progressively worsening erratic behavior, verbal aggression, and physical aggression. Patient endorses recent auditory and visual hallucinations. Denies recent EtOH or drug use. Denies SI/HI. Denies pain or trauma. (Yesenia Bergman) Past History Travel History Traveled to [place] past 21 day No Medical History Any Pertinent Medical History? see below for history Neurological: NONE EENT: NONE Cardiovascular: NONE Respiratory: NONE Gastrointestinal: NONE Hepatic: NONE Renal: NONE Musculoskeletal: NONE Psychiatric: anxiety, bipolar disease, depression, schizophrenia Endocrine: NONE Blood Disorders: NONE Cancer(s): NONE WEB SUPPORT ENGINEER/Reproductive: NONE History of MRSA: No History of VRE: No History of CDIFF: No Surgical History Surgical History: non-contributory Psychosocial History Who do you live with Mother What is your primary language French Tobacco Use: Never used ETOH Use: denies use Family History Hx Contributory? No (Yesenia Bergman) Review of Systems Review of Systems Constitutional: Reports: no symptoms. EENTM: Reports: no symptoms. Respiratory: Reports: no symptoms. Cardiovascular: Reports: no symptoms. GI: Reports: no symptoms. Genitourinary: Reports: no symptoms. Musculoskeletal: Reports: no symptoms. Skin: Reports: no symptoms. Neurological/Psychological: Reports: see HPI. Hematologic/Endocrine: Reports: no symptoms. Immunologic/Allergic: Reports: no symptoms. All Other Systems: Reviewed and Negative (Yesenia Bergman) Physical Exam Physical Exam General Appearance: well developed/nourished, no apparent distress, alert, awake , comfortable Head: atraumatic, normal appearance Eyes: Bilateral: normal appearance. Neck: normal inspection Respiratory: normal breath sounds, lungs clear Cardiovascular: regular rate/rhythm Gastrointestinal: soft, non-tender Back: normal inspection Extremities: normal inspection Neurologic/Psych: awake, alert, oriented x 3, normal gait Skin: intact, normal color, warm/dry Core Measures ACS in differential dx? No CVA/TIA Diagnosis: No Sepsis Present: No Sepsis Focused Exam Completed? No (Yesenia Bergman) Progress Differential Diagnoses I considered the following diagnoses in my evaluation of the patient: [Psychosis versus dudley, low concern for substance abuse versus intoxication versus SI versus trauma] Plan of Care: Orders Procedure Date/time Status EKG 10/29 1459 Active SUB HSP (15 MIN) 10/29 UNK Complete Current Medications Sig/Roseline Start time Last Medication Dose Stop Time Status Admin Diphenhydramine HCl 25 MG AT BEDTIME NEED.. 10/29 1415 AC 10/29 (Benadryl) 2022 Olanzapine 15 MG 2100 10/28 2200 AC 10/29 (Zyprexa) 2022 Olanzapine 5 MG Q2P PRN 10/28 2145 AC (Zyprexa) Acetaminophen 650 MG Q6P PRN 10/28 1015 AC (Tylenol) Benztropine Mesylate 1 MG Q6P PRN 10/28 1015 AC (Cogentin 1 MG Tablet) Benztropine Mesylate 1 MG Q6P PRN 10/28 1015 AC (Cogentin) Gabapentin 300 MG Q6P PRN 10/28 1015 AC 10/28 (Neurontin) 2220 Haloperidol 5 MG Q6P PRN 10/28 1015 AC (Haldol) Haloperidol 5 MG Q6P PRN 10/28 1015 AC (Haldol) Lorazepam 2 MG Q6P PRN 10/28 1015 AC (Ativan) Al Hydroxide/Mg 30 ML Q4-6 PRN PRN 10/27 1230 AC Hydroxide (Maalox Plus) Magnesium Hydroxide 30 ML AT BEDTIME NEED.. 10/27 1230 AC (Milk Of Magnesia) Nicotine 2 MG Q2 HRS NEEDED PRN 10/27 1230 AC (Nicotine) Labs unremarkable. Pt signed out to Dr. Toney with crisis eval pending. Initial ED EKG: none (Yesenia Bergman) Comments: Addendum on 10/26/2017 11:[address] Wilson: I assumed care of this patient at 7 AM shift change from Dr. Toney awaiting crisis evaluation. The crisis team did see the patient and they have deemed her in need of psychiatric hospitalization. She was admitted to this institution in medically stable condition. (Darrell Wilson DO) Departure Departure Condition: Stable Clinical Impression Primary Impression: Schizophrenia Qualifiers: Schizophrenia type: unspecified Qualified Code: F20.9 - Schizophrenia, unspecified Secondary Impressions: Bipolar disorder Referrals: Allegra Osborn (PCP/Family) Departure Forms: Customer Survey General Discharge Information (Yesenia Bergman) Departure Comments pt to be signed out to dr. wilson, 10/27/17, 7am. PA/ATTENDING ANESTHESIOLOGIST Co-Sign Statement Statement: ED Attending supervision documentation- [] I saw and evaluated the patient. I have also reviewed all the pertinent lab results and diagnostic results. I agree with the findings and the plan of care as documented in the PA's/ATTENDING ANESTHESIOLOGIST's documentation. [x] I have reviewed the ED Record and agree with the PA's/ATTENDING ANESTHESIOLOGIST's documentation. [] Additions or exceptions (if any) to the PAs/ATTENDING ANESTHESIOLOGIST's note and plan are summarized below: [] (Dawna MITCHELL,Ryan Salas) Departure Time of Disposition: 1127 Disposition: STILL A PATIENT Psych Admission Note Psychiatric Admission: x I have seen and evaluated KERWIN GARZA. I have also reviewed all the pertinent lab results and diagnostic results. KERWIN GARZA will be admitted to our inpatient Psychiatric unit for treatment and care. PA/ATTENDING ANESTHESIOLOGIST Co-Sign Statement Statement: ED Attending supervision documentation- [] I saw and evaluated the patient. I have also reviewed all the pertinent lab results and diagnostic results. I agree with the findings and the plan of care as documented in the PA's/ATTENDING ANESTHESIOLOGIST's documentation. [] I have reviewed the ED Record and agree with the PA's/ATTENDING ANESTHESIOLOGIST's documentation. [] Additions or exceptions (if any) to the PAs/ATTENDING ANESTHESIOLOGIST's note and plan are summarized below: [] (Darrell Wilson DO) Critical Care Note Critical Care Note Critical Care Time: non-applicable (Yesenia Bergman) (Yesenia Bergman) (Darrell Wilson DO) Critical Care Note Critical Care Note Critical Care Time: non-applicable (Yesenia Bergman)
[2017-10-26 21:24] LABS: ABSOLUTE BASOPHIL COUNT 0 /CUMM (0.0-0.2); ABSOLUTE EOSINOPHIL COUNT 0.2 /CUMM (0.0-0.7); ABSOLUTE GRANULOCYTE CT 6.3 /CUMM (1.4-6.5); ABSOLUTE LYMPH COUNT 1.6 /CUMM (1.2-3.4); ABSOLUTE MONOCYTE COUNT 0.7 /CUMM (0.10-0.60); BASOPHIL % 0.3 % (0.0-2.0); EOSINOPHIL % 1.9 % (0-5); GRANULOCYTE % 72.2 % (42.2-75.2); HEMATOCRIT 39.1 % (37-47); MEAN CORPUSCULAR HGB 30.6 PG (27.0-31.0); MEAN CORPUSCULAR HGB CONC 33.8 G/DL (33.0-37.0); MEAN CORPUSCULAR VOLUME 90.8 FL (81.0-99.0); MEAN PLATELET VOLUME 9.2 FL (7.4-10.4); PLATELET COUNT 188 /CUMM (130-400); RBC DISTRIBUTION WIDTH 13.6 % (11.5-14.5); RED BLOOD CELL CT 4.31 /CUMM (4.20-5.40); WHITE BLOOD CELL COUNT 8.8 /CUMM (4.8-10.8)
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
[2017-10-27 18:21] VITALS: BP 102/74
[2017-10-27 20:00] VITALS: BP 107/63
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
[2017-10-28 12:47] VITALS: BP 80/56
--- NOTE | 2017-10-28 13:18 | History & Physical ---
General Information and HPI History of Present Illness: This young female is admitted to [facility] with nonspecific psychosis and worsening of mental state and readjustment of medication. She reports that she was discharged last February but took the medication for a little while and presently is not taking any medicine at all. She denies any specific physical problems although she claimed that she had a cyst in the breast which was evaluated by the breast surgeon and was told it only has the fluid. There are no other medical problems at this time. Her past history is negative for any significant medical problems she is not taking any medication from her primary physician. She is living with her parent 's and stepfather mother and she does not know much about their health. She claims she has no idea about her biological father she admits to smoking half to 1 pack of cigarettes a day but claims that she drinks only once in a while and she uses marijuana once in a while and denies any other illegal drugs she claims she finished her high school but is not working at this time is looking for a job. Allergies/Medications Allergies: Coded Allergies: No Known Allergies (11/22/15) Home Med list Benztropine Mesylate 0.5 MG TABLET 1 TAB PO QAM MENTAL HEALTH (Reported) Benztropine Mesylate 1 MG TABLET 1 TAB PO QPM MENTAL HEALTH (Reported) Fluphenazine HCl 5 MG TABLET 5 MG PO QAM MENTAL HEALTH (Reported) Fluphenazine HCl 5 MG TABLET 15 MG PO QPM MENTAL HEALTH (Reported) [place] Carbonate 300 MG CAPSULE 900 MG PO QPM MENTAL HEALTH (Reported) [place] Carbonate 150 MG CAPSULE 1 CAP PO QAM MENTAL HEALTH (Reported) Mirtazapine 7.5 MG TABLET 1 TAB PO QPM MENTAL HEALTH (Reported) Past History Travel History Traveled to [place] past 21 day No Medical History Neurological: NONE EENT: NONE Cardiovascular: NONE Respiratory: NONE Gastrointestinal: NONE Hepatic: NONE Renal: NONE Musculoskeletal: NONE Psychiatric: bipolar disease, depression, psychosis, schizo affective disorder, schizophrenia, substance abuse Endocrine: NONE Blood Disorders: NONE Cancer(s): NONE SHELVING SUPERVISOR/Reproductive: NONE History of MRSA: No History of VRE: No History of CDIFF: No Isolation History: Standard Surgical History Surgical History: non-contributory Past Family/Social History Psychosocial History Where do you live? Home ETOH Use: denies use Employment History Employment Unemployed Profession/Employer N/A Review of Systems Review of Systems Constitutional: Reports: see HPI. Denies: no symptoms. EENTM: Denies: no symptoms. Cardiovascular: Denies: no symptoms. Respiratory: Denies: no symptoms. GI: Denies: no symptoms. Genitourinary: Denies: no symptoms. Musculoskeletal: Denies: no symptoms. Skin: Denies: no symptoms. Neurological/Psychological: Reports: see HPI, confusion, emotional problems. Exam & Diagnostic Data Last 24 Hrs of Vital Signs/I&O Vital Signs Date Time Temp Pulse Resp B/P B/P Pulse O2 O2 Flow FiO2 Mean Ox Delivery Rate 10/28 1247 92 80/56 10/28 1999 98.7 74 107/63 10/27 1821 98.3 71 102/74 10/27 1537 Room Air 10/27 1532 97.5 67 18 107/60 97 Room Air 10/27 1336 82 18 109/63 97 Room Air Intake & Output 10/28 1600 10/28 0800 10/28 0000 Intake Total Output Total Balance Patient 140 lb Weight Physical Exam General Appearance Alert, Oriented X3, Cooperative, No Acute Distress, generally flat affect with some psychotic features. Generally flat affect conversation. Skin No Rashes, No Breakdown, No Significant Lesion HEENT Atraumatic, PERRLA, EOMI, Mucous Membr. moist/pink Neck Supple, No JVD, No thryomegaly, +2 Carotid Pulse wo Bruit Lymphatic Cervical nl Cardiovascular Regular Rate, Normal S1, Normal S2, No Murmurs, Gallops, Rubs Lungs Clear to Auscultation, Normal Air Movement Abdomen Soft, No Tenderness, No Hepatospenomegaly, No Masses Neurological Exam Findings: Normal Gait, Normal Speech, Strength at 5/5 X4 Ext, Normal Tone, Sensation Intact, Cranial Nerves 3-12 NL, Reflexes 2+ Cranial Nerves II through XII: Within normal limits and intact Extremities No Clubbing, No Cyanosis, No Edema, No Tenderness/Swelling Assessment/Plan Assessment: This young female with previous history of bipolar disorder is admitted for with the nonspecific psychosis. She denies any specific medical problems recently and admits to not taking her medication for a long time now. Her admission lab work including a CBC electrolytes and liver functions are all normal and she is fairly stable on exam. She does not need any specific workup or treatment from medical standpoint at this time. As Ranked By This Provider Problem List: 1. Psychosis 2. Depression Miscellaneous Miscellaneous Documentation Attending Case Discussed With: Ryan Womack MD Primary Care Physician: Allegra Osborn Patient sees these Specialists none Level of Patient Care: ELYSIA Valencia Attending MD Review Statement Attending Statement Attending MD Statement: examined this patient, reviewed EMR data (avail), discussed with nursing Attending Assessment/Plan: This young female is admitted for psychosis and bipolar disorder. She admits to not taking her medication for a long time. From medical standpoint she is stable without any acute problem on physical exam and her admission blood work is acceptable and normal. She does not require any specific workup or treatment from medical standpoint and will be seen only as needed.
--- NOTE | 2017-10-28 14:28 | SOCIAL WORKER PROG NOTE PSYCH ---
Social Work Progress Note Progress Note I Conrado Sanchez attempted to meet with Candi this morning with doctor
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
[2017-10-28 15:52] VITALS: BP 88/52
[2017-10-28 19:47] VITALS: BP 102/59
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
--- NOTE | 2017-10-29 09:04 | SOCIAL WORKER TX PLAN PSYCH ---
Treatment Plan - Please Document: - Evidence that there is ongoing collaboration between - the patient and the interdisciplinary team, - including the patient's active participation and - responsibility for engaging in the treatment regimen, - and that the treatment plan is individualized and - relevant to the patient's conditions. - Treatment plan should reflect documentation indicating - that all active therapeutic efforts are included. Strengths/Capabilities: The patient says she has two friends. She is determined and does not want others to know when they bother her. . Physical Limitations (Interventions): None noted Patient Identified Trmt Goals: She would like to be safe enough to leave the hopsital. so she can get a place to live and a job Discharge Plan: Outpatient services She has a therapist and case manger Problem/Goals #1 Problem #1: psychosis Goal (Short Term): The patient will take medications while on the unit and discuss any side effects with her psychiatrist. Goal (Vision Specialist): The patient will be active on the unit engaging in at least four groups Interventions: The patient can benefit from several groups on the unit: goals group, acupuncture, meditation, and coping skills. The patient will work with her health social work professor to develop conflict resolution skills for when she frustrated with others. She will also work with the health social work professor to come up with healthy coping strategies to handle emotions Modalities: Individaul and group therapy medication management DSM5/PS Stressors/Medical Prob Diagnosis' (DSM 5, Stressors, Medical): unspecified Schizophrenic d/o F 30 parent-child conflict medication non-compliant Current GAF: 20 Treatment Team - Responsibilities of members of the treatment team include: - Medication Management- MD or SCARIFIER OPERATOR - Medication Administration and Monitoring- Nurse - Group Therapy- Occupational Therapist - 1:1 Therapy,Disch Planning,family involvement-Genetic Engineer
[2017-10-29 12:17] VITALS: BP 95/71
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
--- NOTE | 2017-10-29 15:49 | CP SOUTH PROGRESS NOTE PSYCH ---
Psych (Inpt) Progress Note Progress Note Include the following elements, when applicable: Involvement in the active treatment of the patient with behavioral observations of the patient and the patient's response to the treatment. Review of the ongoing treatment process in the context of the treatment plan. Indication of how multi-disciplinary staff members are carrying out the treatment plan. Plans for future interventions and recommendations for revision of the treatment plan. Liaison with other physicians/providers. Progress Note: Case and treatment plan discussed in team meeting. Staff reports the patient is denying suicidal ideation. Not aggressive behavior here. Practices yoga and watches TV. Patient seen at 12:07 PM. She was resting in her room and refused to get up to meet with me in office. Reported feeling fine but then states she had a head cold. Refused offer for nasal saline. Reports mood is good. Denies suicidal and homicidal ideation. When asked about auditory and visual hallucinations, she responded "I just woke up." Denies paranoid ideation. I saw the patient walking around the hallway later this afternoon and I informed her that the [id number] last night increased Zyprexa dose and added Remeron. Case discussed with Leah Dalal APRN. She reports that the patient did poorly on Remeron in the past. I therefore discontinued Remeron and ordered p.r.n. Benadryl for sleep. Leah wood APRN indicated that the patient has had multiple neuroleptic trials in the past and she recommends a depot medication, such as Risperdal Consta. I will explore this with the patient early next week. Leah wood APRN informed me that the patient had an abnormal EKG in the past. I have ordered an EKG. farmworker brooder farm internet systems administrator has been unable to reach the patient's maternal grandmother , as her voicemail is full. We have not been able to make any progress in terms of arranging a family meeting. IMPRESSION: Slow progress. Continue present treatment plan. Anticipate likely discharge by late next week.
--- NOTE | 2017-10-29 16:21 | SOCIAL WORKER PROG NOTE PSYCH ---
Social Work Progress Note Progress Note Spoke with Christine Christopher's therapist from [facility]. She was given an update on Candi and shared that the Grandmother did want to be involved and was interested in a meeting. I told her we had difficulty getting a hold of the Grandmother and that her Mother was being resistant to helping with that. Christine said that the Grandmother was thinking of taking Candi with her when she moved. Christine has met with Candi about 3x's. She took over from a previous clinician. She also recommends VNS if Candi would allow it. She said if she speaks with her Grandmother again she will let her know to call me.
[2017-10-29 16:25] VITALS: BP 92/50
[2017-10-29 19:44] VITALS: BP 115/57
--- NOTE | 2017-10-30 10:54 | CP SOUTH PROGRESS NOTE PSYCH ---
Psych (Inpt) Progress Note Progress Note Progress Note Pt notes that she is "fine." She spoke at length about "a do not like chemical in my body that are not supposed to be there," when attempted to ascertain the etiology of her resistance to meds. She feels as though she is being unfairly kept at [facility], "because I had a bad day." She feels that being labelled "a mental patient" as biased family, friends, and providers against her. She denies SI or HI. Family may visit tomorrow. Did take meds today. Current Medications Sig/Roseline Start time Last Medication Dose Route Stop Time Status Admin Acetaminophen 650 MG Q4P PRN 10/01 1500 AC 10/29 PO 2353 Al Hydroxide/Mg 30 ML .STK-MED ONE 10/29 1542 DC Hydroxide PO 10/29 1543 Al Hydroxide/Mg 30 ML Q4-6 PRN PRN 10/01 1500 AC 10/29 Hydroxide PO 1543 Aspirin Buffered 81 MG DAILY 10/02 0900 AC 10/30 PO 0811 Atorvastatin Calcium 40 MG 1700 10/01 1700 AC 10/29 PO 1656 Calcium/Vitamin D 250 MG DAILY 10/02 0934 AC 10/30 PO 0811 Clonazepam 1 MG AT BEDTIME 10/20 2100 AC 10/29 PO 11/03 Cyanocobalamin 250 MCG DAILY 10/28 1415 AC 10/30 PO 0811 Levothyroxine Sodium 0.125 MG DAILY AC 10/02 0932 AC 10/30 PO 0631 Magnesium Hydroxide 30 ML AT BEDTIME PRN 10/14 0800 AC 10/26 PO 2206 Metformin HCl 500 MG 0800,1700 10/01 1700 AC 10/30 PO 0811 Multivitamins 1 TAB DAILY 10/02 0933 AC 10/30 PO 0811 Olanzapine 10 MG AT BEDTIME 10/28 2100 AC 10/29 PO 2128 Olanzapine 10 MG 10/21 0800 AC 10/30 PO 0811 Ziprasidone 40 MG 10/29 0900 AC 10/30 PO 0811 Vital Signs Date Time Temp Pulse Resp B/P B/P Pulse O2 O2 Flow FiO2 Mean Ox Delivery Rate 10/30 08 97.5 90 127/76 10/29 1944 98.5 99 135/71 10/29 1616 100 130/75 10/29 1212 90 143/84 MSE Appearance: as stated age Speech : nl rate, rhythm, volume and prosody Behavior: cooperative Motor: no psychomotor agitation or retardation Mood : fine Affect : very flat, non-labile, irritable, appropriate, constricted Thought process: linear and goal directed Thought content : no delusions or paranoia, ?RTIS Perceptions: denied AVHs, denied SI or HI Insight: poor Judgment: poor A/P:Pt wiht hx of schizophrenia with hx of medication noncompliance with limited compliance while hospitalized. Remains very resistent to meds. Continue current medication regimen Encourage integration into the milieu
[2017-10-30 12:27] VITALS: BP 102/52
[2017-10-30 15:27] VITALS: BP 107/54
[2017-10-30 20:04] VITALS: BP 98/51
[2017-10-31 08:58] VITALS: BP 97/56
[2017-10-31 12:08] VITALS: BP 112/57
--- NOTE | 2017-10-31 12:13 | CP SOUTH PROGRESS NOTE PSYCH ---
Psych (Inpt) Progress Note Progress Note Pt notes that she is "OK." Only minimally cooperative with interview despite numerous attempts to engage pt. Denies SI or HI. Current Medications Sig/Roseline Start time Last Medication Dose Route Stop Time Status Admin Acetaminophen 650 MG Q6P PRN 10/28 1015 AC PO Al Hydroxide/Mg 30 ML Q4-6 PRN PRN 10/27 1230 AC Hydroxide PO Benztropine Mesylate 1 MG Q6P PRN 10/28 1015 AC PO Benztropine Mesylate 1 MG Q6P PRN 10/28 1015 AC IM Diphenhydramine HCl 25 MG AT BEDTIME NEED.. 10/29 1415 AC 10/30 PO 2309 Gabapentin 300 MG Q6P PRN 10/28 1015 AC 10/30 PO 2309 Haloperidol 5 MG Q6P PRN 10/28 1015 AC PO Haloperidol 5 MG Q6P PRN 10/28 1015 AC IM Lorazepam 2 MG Q6P PRN 10/28 1015 AC IM Magnesium Hydroxide 30 ML AT BEDTIME NEED.. 10/27 1230 AC PO Nicotine 2 MG Q2 HRS NEEDED PRN 10/27 1230 AC PO Olanzapine 15 MG 2100 10/28 2200 AC 10/30 PO 2126 Olanzapine 5 MG Q2P PRN 10/28 2145 AC PO Vital Signs Date Time Temp Pulse Resp B/P B/P Pulse O2 O2 Flow FiO2 Mean Ox Delivery Rate 10/31 1208 86 112/57 10/31 0858 97.3 82 97/56 10/31 2003 97.2 63 98/51 10/30 1527 91 107/54 10/30 1227 82 102/52 MSE Appearance: as stated age Speech : nl rate, rhythm, volume and prosody Behavior: cooperative Motor: no psychomotor agitation or retardation Mood : fine Affect : extremely flat, non-labile, very irritable, appropriate, constricted Thought process: linear and goal directed Thought content : no delusions or paranoia, ?RTIS Perceptions: denied AVHs, denied SI or HI Insight: poor Judgment: poor A/P:Pt wiht hx of schizophrenia with hx of medication noncompliance with limited compliance while hospitalized. Remains very resistent to meds and engagement in treatment. Continue current medication regimen Encourage integration into the milieu
[2017-10-31 15:38] VITALS: BP 112/54
[2017-10-31 19:51] VITALS: BP 113/57
[2017-11-01 12:05] VITALS: BP 93/63
--- NOTE | 2017-11-01 12:28 | SOCIAL WORKER PROG NOTE PSYCH ---
Social Work Progress Note Progress Note Member Name Member ID Member Subscriber Name Subscriber ID KERWIN GARZA [id number] KERWIN GARZA [id number] Pended Authorization # Client Authorization # Type of Request [id number] CONCURRENT Date of Admission/ Start of Services Requested From Submission Date 10/27/2017 10/30/2017 11/01/2017
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
--- NOTE | 2017-11-01 14:40 | CP SOUTH PROGRESS NOTE PSYCH ---
Psych (Inpt) Progress Note Progress Note Include the following elements, when applicable: Involvement in the active treatment of the patient with behavioral observations of the patient and the patient's response to the treatment. Review of the ongoing treatment process in the context of the treatment plan. Indication of how multi-disciplinary staff members are carrying out the treatment plan. Plans for future interventions and recommendations for revision of the treatment plan. Liaison with other physicians/providers. Progress Note: Dr. Varner's notes reviewed. Case and treatment plan discussed in team meeting. Staff reports that the patient is denying suicidal ideation. Not appearing preoccupied. Hoping to go home. Grandmother visited. Patient has been appearing cheerful. Complained of anxiety. Medication-seeking. Childlike. Patient seen at 10:34 AM. Feels tired and cold. Appears awake and alert. Affect is calm and blunted to flat and somewhat irritable. Mood: "I just woke up." Rates sad mood 0/10. States she gets anxious at night like at a 9 or 10/ 10. Currently rates anxiety 6 or 7/10. Feels hopeless in terms of where her life is supposed to go but states she is not really hopeless. States nobody is ever helpless. Feels worthless sometimes but not really now. When asked if feeling guilty, she responded "not really." Denies active and passive suicidal ideation. Denies homicidal ideation. Reports hearing voices but states she cannot really tell who is who. Does not know the content of the auditory hallucinations. Denies visual hallucinations. When asked if anyone is out to harm her she responded "I don't think so, I don't know." Reports sleep and appetite are okay. Energy is nonexistent. She reports therefore she does yoga at night. She believes that her own voice sounded drunk to her the other day but not now. She believes now her voice sounds tired and nasally. I discussed with patient Leah Torres APRN's recommendation for Risperdal Consta. While the patient is now open to Risperdal, she is not open to a long- acting injectable, so we will continue olanzapine as is for now. IMPRESSION: Slow progress. Continue present treatment plan. We are trying to arrange a family meeting with grandmother. Anticipate likely discharge Wednesday. We will refer patient to IOP. We will try to make a referral for daily visiting nurse to help with medication adherence.
[2017-11-01 15:39] VITALS: BP 100/64
[2017-11-01 20:06] VITALS: BP 111/58
[2017-11-02 11:31] VITALS: BP 90/50
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
--- NOTE | 2017-11-02 15:05 | CP SOUTH PROGRESS NOTE PSYCH ---
Psych (Inpt) Progress Note Progress Note Include the following elements, when applicable: Involvement in the active treatment of the patient with behavioral observations of the patient and the patient's response to the treatment. Review of the ongoing treatment process in the context of the treatment plan. Indication of how multi-disciplinary staff members are carrying out the treatment plan. Plans for future interventions and recommendations for revision of the treatment plan. Liaison with other physicians/providers. Progress Note: Case and treatment plan discussed in team meeting. Staff reports that the patient was not up as of time of team meeting. Family meeting was scheduled for 1:30 pm with GRAHAM. Patient seen at 10:52 a.m. with PA student (in dining room area). Was in bed prior to getting up to meet with us. Feels "good." Has no complaints. Appears a little sleepy. Affect is calm and blunted. Mood is okay. Feels tired. Reports the olanzapine is good. Sad: unable to score, "I don't know, I just work up." She is pleased that she fell asleep last night with forcing herself to sleep. Denies SI. AH: "I don't know, I just woke up." Refuses recommendation for IOP. States she won't benefit from groups. Doesn't want a visiting nurse but is willing to have one. Wants [facility] to permit her to have 2 kittens. I joined family meeting with patient, GRAHAM and Azeb Green LCSW. [facility] will not allow kittens but we explored patient's volunteering at an animal fdc. Patient apparently gets lonely at home. Major risks/benefits of olanzapine were discussed, including risks of metabolic syndrome (with weight gain, DM, HTN and HLD) and irreversible TD. Patient was advised to avoid drugs, alcohol and while on this medication. Patient showed good insight into having schizophrenia and reported being focussed on her recovery. IMPRESSION: Slow progress. Continue present treatment plan. Anticipate discharge tomorrow to home/family with referral back to OPS and referral for visiting nurse services.
[2017-11-02 19:41] VITALS: BP 103/59
[2017-11-03 08:45] VITALS: BP 92/55
--- NOTE | 2017-11-03 10:13 | SOCIAL WORKER PROG NOTE PSYCH ---
Social Work Progress Note Progress Note Spoke with Christine therapist from [facility]. She will increase visits to 2x's per week. Updated her on the family meeting and points of interest. Christine will see Candi next Wednesday at 2pm. Dr. Womack and I met with Binta together. She was in group this morning. Reported high anxiety last night and stated she vomited in her mouth 6 times last night. Feels better this morning. Somewhat anxious around returning home and not having anyone to talk to. Feels isolated at home. Encouraged her to continue to work on a plan with her therapist to engage in community activity. Let her know Christine will see her 2x's a week. She feels safe to leave the hospital today. No SI/HI. Voices are gone today. Grandmother is picking her up late morning. Scheduled OPS appts. Intake is 11/04 at 4pm. Sedrick bernabe is with Brian Her APRN 11/10 at 6:30pm. She can resume seeing Leah Torres APRN on 12/07 at 12:30pm.
[2017-11-03] MEDS ORDERED: GABAPENTIN300 M2 PO (10:32)
[2017-11-03] MEDS ORDERED: NICORELIEF2 MG PO (10:32)
[2017-11-03] MEDS ORDERED: OLANZAPINE15 M1 PO (10:32)
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
--- NOTE | 2017-11-03 13:33 | CP SOUTH PROGRESS NOTE PSYCH ---
Psych (Inpt) Progress Note Progress Note Include the following elements, when applicable: Involvement in the active treatment of the patient with behavioral observations of the patient and the patient's response to the treatment. Review of the ongoing treatment process in the context of the treatment plan. Indication of how multi-disciplinary staff members are carrying out the treatment plan. Plans for future interventions and recommendations for revision of the treatment plan. Liaison with other physicians/providers. Progress Note: Case and treatment plan discussed in team meeting. Staff reports that the patient is excited about leaving. Denying SI. Taking her medication. Patient seen at 10:15 AM was manager social workAzeb. Patient was in group prior to meeting with us in office. Reports doing well and states she is ready to go. Reports she was anxious as hell last night and threw up in her mouth 6 times. Denies having this symptom this morning. Affect is calm and euthymic. She is much better-related than on admission. Reports mood is okay. She is anxious to go home because she is doing really well and is not talking to voices here. Complains of isolation at home. Unable to rate sad mood. States she feels numb and like she wants to cry. Rates anxiety 5-7/10. Feels hopeless and helpless a little bit but not really. Denies feeling worthless or guilty. Denies active and passive suicidal ideation. Denies homicidal ideation. Regarding voices, states she does not really hear them. Denies visual hallucinations and paranoid ideation. States she was up until 2 AM and slept until she was awakened for breakfast. Appetite is okay. Energy: states she is actually lethargic today. Appears awake and alert. Tolerating medications well. Feels ready to leave but she is concerned about loneliness. Feels safe for discharge. IMPRESSION: Condition improved. Okay for discharge today to home and family with follow-up at OPS and with [id number] therapist. Patient will [facility] today.
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
--- NOTE | 2017-11-03 13:43 | SOCIAL WORKER PROG NOTE PSYCH ---
Social Work Progress Note Faxed Referral(s) 1 Referred To: [facility] Care Documents sent: Health Summary, W10 Faxed to: [facility] Fax #: [phone] Faxed by: Azeb Green Date faxed: 11/03/17 Time Faxed: [phone] Faxed Referral(s) 2 Referred To: [facility] Transition of Care Documents sent: Health Summary, W10 Faxed to: [facility] Fax #: [phone] Faxed by: Azeb Green Date faxed: 11/03/17 Time Faxed: [phone]
== END 2017-11-03 11:06 | DRG 751 ==
LOC: ERH 20:23 → CP SOUTH 10-27 11:27 → ERHI 10-27 11:27 → CP SOUTH 10-27 17:38
PROVIDERS: Physician Assistant
DX: F29 Unspecified psychosis not due to a substance or known physiological condition (principal); F10.10 Alcohol abuse, uncomplicated; F12.929 Cannabis use, unspecified with intoxication, unspecified
CPT/HCPCS: 80307; 81025; 93005; 93010; G0480; J0515; J1630